=== PATIENT | male | born 1945 | race Two or more races ===

== ENCOUNTER 2024-07-09 10:54 | Inpatient (IN) | payer MEDICARE, MEDICAID, SELFPAY ==
[2024-07-09] VITALS (81 sets, daily range): BP systolic 45–152; BP diastolic 15–108; PULSE 64–98; RESP 9–29; TEMP 35.4–37.5; O2SAT 57–100; BMI 18.3
--- NOTE | 2024-07-09 11:51 | EKG_ITS ---
[facility] Test Date: 2024-07-09 Pat Name: ROM EDWARDS Department: Room: - Gender: Male Mental Health Worker: : 1945 Requested By: Anam Goode Order Number: [id number] Reading MD: Anam Goode Measurements Intervals [place] Rate: 84 P: 33 RI: 121 QRS: 29 QRSD: 107 T: 14 QT: 383 QTc: 454 Interpretive Statements SINUS RHYTHM LOW QRS VOLTAGE IN EXTREMITY LEADS [QRS DEFLECTION < 0.5 mV IN LIMB LEADS] MODERATE ST DEPRESSION [0.05+ mV ST DEPRESSION] No previous ECG available for comparison /[id number]
--- NOTE | 2024-07-09 11:51 | EDNOTE_ITS ---
ED Weakness RME/HPI General Chief complaint: Flu Like Symptoms Stated complaint: COUGHING, WEAK, NO EATING/DRINKING; CHOKE ON WATER Time Seen by Provider: 07/09/24 11:11 Source: patient and family Arrival date/time: 07/09/24 10:54 Limitations: altered mental status RME / HPI RME / HPI Narrative: DR. FRIAS MAIN ED EVALUATION: 78 y/o male with Hx of Stroke, Type II DM, and Hypertension BIB son presents to ED c/o cough, loose stool and weakness x 2 days. Patient is lethargic, unable to provide history, and son notes this started primarily with a cough that worsened after his father choked on some food. Patient has had some aspiration issues/choking issues since his CVA. Denies any fever. Patient was seen at clinic yesterday and was prescribed cough medication and antibiotics, but has not started them as since yesterday evening he is unable to get his father to take any water, medicines, or food therefore brings him to the emergency. Son reports he is usually able to have conversations with the patient, but has not been able to thoroughly communicate over the last 2 days. Related Data Home Medications ?Medication ?Instructions ?Recorded ?Confirmed acetazolamide 250 mg tablet 125 mg PO QDAY 04/26/19 Held on 07/10/24. Instructions: Doctor's Order alogliptin 6.25 mg tablet 6.25 mg PO QAM 04/26/1906/23 Held on 07/10/24. Instructions: Doctor's Order brimonidine 0.1 % eye drops 1 drp ophthalmic (eye) TID 04/26/19 07/10/24 Held on 07/10/24. Instructions: Doctor's Order losartan 50 mg tablet 50 mg PO QDAY 04/26/1907/10 Held on 07/10/24. Instructions: Doctor's Order simvastatin 10 mg tablet 10 mg PO QPM 04/26/19 Held on 07/10/24. Instructions: Doctor's Order timolol maleate 0.5 % once daily 1 drp ophthalmic (eye ) BID 04/26/19 07/10/24 eye drops Held on 07/10/24. Instructions: Doctor's Order metformin 1,000 mg tablet 1,000 mg PO QDAY 04/27/19 aspirin 81 mg tablet,delayed 81 mg PO QDAY 07/10/24 release (Adult Low Dose Aspirin) promethazine-DM 6.25 mg-15 mg/5 mL 5 ml PO Q6H PRN cou gh 07/10/24 07/10/24 oral syrup Previous Rx's ?Medication ?Instructions ?Recorded ascorbic acid (vitamin C) 250 mg 500 mg (2 x 250 mg) P O BID #10 tabs 04/29/19 tablet (Vitamin C) Held on 07/10/24. Instructions: Doctor's Order hydrocodone 10 mg-acetaminophen 1 tab PO Q6H PRN pain #20 tabs 04/29/19 325 mg tablet ([place]) Held on 07/10/24. Instructions: Doctor's Order insulin glargine 100 unit/mL (3 7 unit (0.07 mL) subcu t QDAY #15 mL 04/29/19 mL) subcutaneous pen Held on 07/10/24. Instructions: Doctor's Order zinc sulfate 50 mg zinc (220 mg) 220 mg (4.4 x 50 mg z inc (220 mg)) 04/29/19 capsule PO QDAY #10 caps Held on 07/10/24. Instructions: Doctor's Order Allergies Allergy/AdvReac Type Severity Reaction Status Date / Time No Known Allergies Allergy Verified 07/09/24 10:57 Review of Systems Review of Systems ROS Unobtainable: unobtainable due to medical condition Past Medical History Past Medical History CARDIAC: Positive Hypercholesterolemia and Hypertension ENT: Positive Glaucoma ENDOCRINE: Positive Diabetes Mellitus Type 2 ED Exam Narrative Physical exam: GENERAL APPEARANCE: AxOx4, generally well-appearing, no acute distress. Lethargic. Slow to answer questions. HEENT: NC, AT. EOMI, clear conjunctiva, oropharynx clear. Mucus membranes dry. NECK: Supple without lymphadenopathy. No stiffness or restricted ROM. HEART: Normal rate and regular rhythm, normal S1/S1, no m/r/g LUNGS: CTAB, moving air well. No crackles or wheezes are heard. Hypoxic, saturating at 87%-90% on room air. ABDOMEN: Soft, nontender, nondistended with good bowel sounds heard. BACK: No midline C/T/L spine pain or deformity, No CVAT, no obvious deformity. EXTREMITIES: Without cyanosis, clubbing or edema. MUSCULOSKELETAL: FROM of all major joints, no chest tenderness NEUROLOGICAL: Grossly nonfocal. Alert and oriented, moving all 4 extremities. CN not formally tested but appear grossly intact. Observed to ambulate with normal gait. Skin: Warm and dry without any rash. General Limitations: Present altered mental status Course Course Course Narrative: CXR is ordered for determining etiology of aspiration/cough. Quality Measures Current suspected stage: septic shock (LA >4 and/or hypotension) Sepsis reassessment completed at (date): 07/09/24 Sepsis reassessment completed at (time): 00:00 Possible source: pulmonary (Aspiration pneumonia) Blood cultures ordered: yes Antibiotic ordered: Yes Pertinent labs: 07/09/24 12:25 Lactic Acid 6.3 H* mMol/L (0.4-2.0) Procalcitonin 0.90 H ng/ml (0.0-0.49) sepsis and none Orders Category Date Time Status Visitor Services Assistant Q4H START 00 Care 07/09/24 12:23 Active EKG (ED ONLY) *Do not use* NOW Care 07/09/24 11:51 Completed Maria [Urinary Catheter] X1 Care 07/09/24 13:49 Active Maria to [place] Routine Care 07/09/24 13:43 Ordered Insert IV NOW Care 07/09/24 12:23 Active Transfuse,blood/blood products NOW Care 07/09/24 13:57 Active guaiac [Occult Blood,Stool (Nursing)] NOW Care 07/09/24 14:00 Active Consult to Cardiology Stat Cons 07/09/24 13:[address] head/brain wo con Stat Exams 07/09/24 11:51 Completed EKG (ED Only) Stat Exams 07/09/24 11:51 Draft XR chest 1V Stat Exams 07/09/24 11:51 Completed Blood Culture (Lab) Stat Lab 07/09/24 12:25 Received CBC Stat Lab 07/09/24 12:25 Completed CMP [Comprehensive Metabolic Panel] Stat Lab 07/09/24 12:25 Completed Ketone [Beta Hydroxybutyrate] Stat Lab 07/09/24 12:25 Completed Lactate (Lactic Acid) Stat Lab 07/09/24 12:25 Completed Partial Thromboplastin Time Stat Lab 07/09/24 14:03 Completed Procalcitonin Stat Lab 07/09/24 12:25 Completed Prothrombin Time with INR Stat Lab 07/09/24 14:03 Completed Troponin I Stat Lab 07/09/24 12:25 Completed Type and Screen Stat Lab 07/09/24 14:03 Results Urinalysis Stat Lab 07/09/24 14:05 Completed VBG [Venous Blood Gas] Stat Lab 07/09/24 12:25 Completed prbc [Red Blood Cells] Stat Lab 07/09/24 14:03 Results Insulin Reg 100 Units/100 ml [Myxredlin] Med 07/09/24 13:42 Discontinued 100 unit in 100 ml IV 0.1 unit/kg/hr Insulin Regular Med 07/09/24 13:44 Discontinued 8 unit IV X1 ONE MethylPREDNISolone.* [SoluMEDROL Inj] Med 07/09/24 11:49 Discontinued 125 mg IVP X1 ONE Norepinephrine/D5W 8mg/250ml [Levophed in D5W 8mg/250ml Med 07/09/24 13:43 Discontinued ] 8 mg in 250 ml IV 0.05 mcg/kg/min Piper/Tazo 3.375 gm Premix [Zosyn] Med 07/09/24 13:38 Discontinued 3.375 gm in 50 ml IV X1 Sodium Bicarb 8.4% 50ml Vial* Med 07/09/24 13:44 Discontinued 100 meq IV X1 ONE Sodium Chloride 0.9% 1000 ml [Ns] 1,000 ml Med 07/09/24 11:49 Discontinued IV 999 mls/hr Sodium Chloride 0.9% 500 ml [Ns] 500 ml Med 07/09/24 13:05 Discontinued IV 999 mls/hr Sodium Chloride 0.9% 500 ml [Ns] 500 ml Med 07/09/24 13:37 Discontinued IV 999 mls/hr Reevaluation(s) Reevaluation #1: Patient's blood sugar is good. Considered for possible admission. Pending official radiology report for CT, CXR. Time: 12:35 Reevaluation #2: After administering 1.5 L of fluids, patient is opening his eyes, appears more spry. Sepsis alert initiated. Time: 01:39 Vital Signs Vital signs: Vital Signs Temperature 98.7 F 07/09/24 11:28 Pulse Rate 72 07/09/24 11:28 Respiratory Rate 17 07/09/24 11:28 Blood Pressure 78/48 L 07/09/24 11:28 Pulse Oximetry (%) 98 07/09/24 11:28 Oxygen Delivery Method Room Air 07/09/24 11:28 Procedures -ED EKG Interpretation #1: Date of EK07/09/24 Time of EK:57 Rate: 84 Interpretation: Interpreted by me Additional EKG comment: Normal sinus rhythm, HR 84, normal axis, normal interval, no acute ST or T-wave changes, no STEMI. Weakness MDM Narrative MDM Narrative:: Mr. Edwards presents to the emergency department markedly ill, hypotensive, concerning for septic shock. Subjective history was provided primarily by the patient's son as the patient himself was lethargic. He normally can hold regular conversations although normal activity is bedbound (bilateral BKA, CVA in the past). Patient's son notes that 2 days ago he choked on his food (something he does on occasion since his CVA) and since then has had a worsening cough. Patient on arrival was hypotensive with a systolic of 70s, his brought immediately to room 4 and resuscitated. Reassessment after 20 cc/kg fluid resuscitation she was much more alert patient, he states he feels well without any significant pain. He denies abdominal pain. However he does not acknowledge having a cough. Laboratory testing was grossly abnormal and critical. There was significant for normal white blood cell count of 9000, however a marked anemia with a hemoglobin of 7.2, acute kidney injury with a creatinine of 2.4, marked metabolic acidosis without anion gap, and signs of shock liver with AST and ALT in the thousands. Due to the concerns for aspiration of GI contents, patient was started initially on IV steroids. Although white blood cell count was normal, chest x-ray shows early infiltrates and lactic acid returned a markedly high (in the setting of acute kidney injury) patient had blood cultures drawn and was started on broad-spectrum antibiotics. Despite aggressive fluid resuscitation he would hold a stable blood pressure of systolics in the 100 for no more than 30 to 40 minutes and then would return to a hypotensive state. Patient was started on pressors. I contacted the ICU team for admission. The send and returned by the time the ICU team was here they had discussed end of care goals with him. Patient send was advised he is very ill, guarded condition. Patient is DNR/DNI. Scribe Attestation: I, Beverly Kevin, am scribing for and in the presence of Dr. Frias. Provider Notation: Although this document has been carefully reviewed, there may still be some phonetic and other typographical errors.? These errors are purely grammatical due to imperfections in the software program and should not be construed in any way to? compromise the substance of the patient's medical care during this visit. Patient data External records reviewed:: [facility] previous records (No recent ED records available for review.) Clinical information provided by:: family (Son) Social determinants that could affect healthcare access:: none Patient has the following chronic illnesses:: Hypercholesterolemia, Hypertension, Glaucoma, Diabetes Mellitus Type 2, Stroke How is presenting disease/condition affected by chronic disease/condition?: exacerbated by Evaluation data The following diagnostics were reviewed and interpreted by me:: lab results, radiology exam(s) and EKG tracing(s) (see interpretation under the procedures tab) Lab and/or radiology exams considered but not ordered:: None Interpretation Summary: RADIOLOGY Chest X-Ray I personally reviewed and interpreted a chest xray on this patient that was ordered for determining etiology of aspiration/cough. Films were reviewed. I agree with the radiologist's interpretation. Patient: ROM EDWARDS Record#: [id number] Birthdate: 1945 Age/Sex: 78 / M Location: [address]: Braeden Vigil MD Ordering Physician: Anam Frias MD Date of Service: 07/09/24 Procedure(s): XR chest 1V Accession Number(s): [id number] cc: Nathan Joe MD; Anam Frias MD; Krunal Gaming MD~ Examination: AP chest single view Technique one AP portable semiupright chest single view Date and time: July 09, 2024 1211 hrs. Indications: Coughing shortness of breath beginning 3 days ago. Findings: Bilateral perihilar bibasilar pneumonia. Normal heart size Prominent osteopenia Impression: Significant bilateral pneumonia Dictated By: Krunal Gaming MD Signed By: <Electronically signed by Krunal Gaming MD in OV> 07/09/24 1441 Head/Brain CT Patient: ROM EDWARDS. Record#: [id number] Birthdate: 1945 Age/Sex: 78 / M Location: [facility] Attending Dr: Ordering Physician: Anam Frias MD Date of Service: 07/09/24 Procedure(s): CT head/brain wo [facility] Accession Number(s): [id number] cc: Nathan Joe MD; Anam Frias MD; Krunal Gaming MD~ Examination: CT brain head without contrast. 2-D sagittal coronal reconstructions Date and time of exam:July 09, 2024 1258 hrs. Indications: Altered mental status today CTDI: vol (mGy):48 DLP: (mGycm):884 Technique: Multiple CT axial sections of the brain have been obtained, 5 mm slice thickness. Contrast has not been administered. 2-D sagittal, coronal reconstructions have been obtained Low dose protocols were performed. One or more of the following dose reduction techniques were used; automated exposure control, adjustment of the mA and/or KV according to patient size, use of iterative reconstruction technique. Findings: No significant ventricular enlargement. Encephalomalacia and left middle cerebral artery distribution with ipsilateral ventricular dilatation Intra-axial or extra-axial hemorrhage density is not seen. No mass effect or midline shift Basal cisterns are not remarkable. Fourth ventricle is midline. Cranial vault intact. Impression: Negative for acute hemorrhage, mass effect or midline shift Advise clinical correlation and follow-up accordingly Dictated By: Krunal Gaming MD Signed By: <Electronically signed by Krunal Gaming MD in OV> 07/09/24 1438 Medications / Prescriptions Medications or Prescriptions considered but not ordered:: None Medication administrations:: Medication Administration History Acetaminophen (Acetaminophen 325 Mg Tablet) 650 mg PO Q6H PRN PRN Reason: Fever >101.5 Stop: 08/08/24 14:19 Acetaminophen (Acetaminophen 325 Mg Tablet) 650 mg PO Q6H PRN PRN Reason: PAIN SCALE 1-3 (mild Stop: 08/08/24 14:19 Dextrose (Dextrose 50%-Water Inj 50 Ml Syringe) 25 ml IV Q15MIN PRN PRN Reason: BG 50-70 responsive npo pt Stop: 08/08/24 16:23 Dextrose (Dextrose 50%-Water Inj 50 Ml Syringe) 50 ml IV Q15MIN PRN PRN Reason: BG <50 OR BG <70 & pt unresponsive Stop: 08/08/24 16:23 Glucagon (Glucagon Inj 1 Mg Vial) 1 mg IM Q15MIN PRN PRN Reason: BG <70, and no IV access Ceftriaxone Sodium/Dextrose (Rocephin/D5w 1gm Iv Premix) 1 gm in 50 mls @ 100 mls/hr IV QDAY PAUL Stop: 07/17/24 08:59 Vasopressin/Sodium Chloride (Vasostrict/Ns Ivpb) 20 unit in 100 mls @ 9 mls/hr IV .Q11H7M PRN; Protocol PRN Reason: PER PROTOCOL Stop: 08/08/24 14:57 Last Titration: 07/10/24 06:00 Dose: 0.03 unit/min, 9 mls/hr Documented By: Titration: 07/10/24 05:00 Dose: 0.03 unit/min, 9 mls/hr Documented By: Titration: 07/10/24 04:00 Dose: 0.03 unit/min, 9 mls/hr Documented By: Admin: 07/10/24 03:26 Dose: 0.03 unit/min, 9 mls/hr Documented By: Titration: 07/10/24 03:26 Dose: Infused Documented By: Titration: 07/10/24 03:00 Dose: 0.03 unit/min, 9 mls/hr Documented By: Titration: 07/10/24 02:00 Dose: 0.03 unit/min, 9 mls/hr Documented By: Titration: 07/10/24 01:00 Dose: 0.03 unit/min, 9 mls/hr Documented By: Titration: 07/10/24 00:00 Dose: 0.03 unit/min, 9 mls/hr Documented By: Titration: 07/09/24 23:00 Dose: 0.03 unit/min, 9 mls/hr Documented By: Titration: 07/09/24 22:00 Dose: 0.03 unit/min, 9 mls/hr Documented By: Titration: 07/09/24 21:00 Dose: 0.03 unit/min, 9 mls/hr Documented By: Titration: 07/09/24 20:30 Dose: 0.03 unit/min, 9 mls/hr Documented By: Titration: 07/09/24 20:00 Dose: 0.03 unit/min, 9 mls/hr Documented By: Admin: 07/09/24 18:04 Dose: 0.03 unit/min, 9 mls/hr Documented By: ZP Norepinephrine Bitartrate (Levophed In Ns 16mg/250ml) 16 mg in 250 mls @ 2.147 mls/hr IV .Q24H PRN; Protocol PRN Reason: PER PROTOCOL Stop: 08/08/24 19:49 Last Titration: 07/10/24 06:00 Dose: 0.19 mcg/kg/min, 8.16 mls/hr Documented By: Titration: 07/10/24 05:00 Dose: 0.19 mcg/kg/min, 8.16 mls/hr Documented By: Titration: 07/10/24 04:20 Dose: 0.19 mcg/kg/min, 8.16 mls/hr Documented By: Titration: 07/10/24 04:00 Dose: 0.21 mcg/kg/min, 9.019 mls/hr Documented By: Titration: 07/10/24 03:00 Dose: 0.21 mcg/kg/min, 9.019 mls/hr Documented By: Titration: 07/10/24 02:00 Dose: 0.21 mcg/kg/min, 9.019 mls/hr Documented By: Titration: 07/10/24 01:16 Dose: 0.23 mcg/kg/min, 9.878 mls/hr Documented By: Titration: 07/10/24 01:11 Dose: 0.21 mcg/kg/min, 9.019 mls/hr Documented By: Titration: 07/10/24 01:00 Dose: 0.19 mcg/kg/min, 8.16 mls/hr Documented By: Titration: 07/10/24 00:31 Dose: 0.19 mcg/kg/min, 8.16 mls/hr Documented By: Titration: 07/10/24 00:00 Dose: 0.21 mcg/kg/min, 9.019 mls/hr Documented By: Titration: 07/09/24 23:46 Dose: 0.23 mcg/kg/min, 9.878 mls/hr Documented By: Titration: 07/09/24 23:37 Dose: 0.25 mcg/kg/min, 10.737 mls/hr Documented By: Titration: 07/09/24 23:30 Dose: 0.25 mcg/kg/min, 10.737 mls/hr Documented By: Titration: 07/09/24 23:01 Dose: 0.27 mcg/kg/min, 11.596 mls/hr Documented By: Titration: 07/09/24 23:00 Dose: 0.29 mcg/kg/min, 12.455 mls/hr Documented By: Titration: 07/09/24 22:35 Dose: 0.29 mcg/kg/min, 12.455 mls/hr Documented By: Titration: 07/09/24 22:00 Dose: 0.31 mcg/kg/min, 13.314 mls/hr Documented By: Titration: 07/09/24 21:45 Dose: 0.31 mcg/kg/min, 13.314 mls/hr Documented By: Titration: 07/09/24 21:30 Dose: 0.33 mcg/kg/min, 14.173 mls/hr Documented By: Titration: 07/09/24 21:00 Dose: 0.35 mcg/kg/min, 15.032 mls/hr Documented By: Titration: 07/09/24 20:30 Dose: 0.35 mcg/kg/min, 15.032 mls/hr Documented By: Admin: 07/09/24 20:00 Dose: 0.37 mcg/kg/min, 15.891 mls/hr Documented By: Insulin Human Lispro (Insulin Lispro (Admelog) 1 Unit/0.01 Ml Unit) 0 unit SC Q6HR PAUL; Protocol Stop: 08/08/24 17:59 Last Admin: 07/10/24 06:30 Dose: 1 unit Documented By: Co-signed By: SHANELLE Admin: 07/10/24 00:27 Dose: 4 unit Documented By: Co-signed By: MILTON Admin: 07/09/24 18:00 Dose: 4 unit Documented By: SANDRINE Co-signed By: MR Ondansetron HCl (Ondansetron Inj 2 Mg/Ml Inj 2 Ml) 4 mg IV Q6H PRN; Protocol PRN Reason: NAUSEA OR VOMITING Stop: 08/08/24 14:19 Pantoprazole Sodium (Pantoprazole Inj 40 Mg Vial) 40 mg IVP BID PAUL Stop: 08/08/24 17:04 Last Admin: 07/10/24 07:02 Dose: 40 mg Documented By: Admin: 07/09/24 20:06 Dose: 40 mg Documented By: Admin: 07/09/24 18:00 Dose: 40 mg Documented By: SANDRINE Discontinued Medications Albuterol (Albuterol Rt 2.5 Mg/0.5 Ml Nebu) 10 mg INH X1 ONE Stop: 07/09/24 22:01 Last Admin: 07/09/24 22:35 Dose: 10 mg Documented By: TERESA Dextrose (Dextrose 50%-Water Inj 50 Ml Syringe) 50 ml IV X1 ONE Stop: 07/09/24 14:35 Last Admin: 07/09/24 16:17 Dose: Not Given Documented By: SURESH Non-Admin Reason: Cancelled by Provider Dextrose (Dextrose 50%-Water Inj 50 Ml Syringe) 50 ml IV X1 ONE Stop: 07/09/24 21:53 Last Admin: 07/09/24 22:07 Dose: 50 ml Documented By: Furosemide (Furosemide Inj 10 Mg/Ml 4ml Vial) 40 mg IVP X1 ONE Stop: 07/10/24 01:41 Last Admin: 07/10/24 01:50 Dose: 40 mg Documented By: Heparin Sodium (Porcine) (Heparin Sod Inj 5000 Unit/Ml Vial) 5,000 unit SC Q8HR PAUL Stop: 07/23/24 21:59 Sodium Chloride (Ns) 1,000 mls @ 999 mls/hr IV .Q1H1M ONE Stop: 07/09/24 12:49 Last Infusion: 07/09/24 13:11 Dose: Infused Documented By: Admin: 07/09/24 12:24 Dose: 999 mls/hr Documented By: SURESH Sodium Chloride (Ns) 500 mls @ 999 mls/hr IV .Q31M ONE Stop: 07/09/24 13:35 Last Infusion: 07/09/24 14:04 Dose: Infused Documented By: Admin: 07/09/24 13:11 Dose: 999 mls/hr Documented By: SURESH Sodium Chloride (Ns) 500 mls @ 999 mls/hr IV .Q31M ONE Stop: 07/09/24 14:07 Last Infusion: 07/09/24 14:06 Dose: Infused Documented By: Admin: 07/09/24 13:38 Dose: 999 mls/hr Documented By: SURESH Piperacillin/Tazobactam/Dextrose (Zosyn) 3.375 gm in 50 mls @ 100 mls/hr IV X1 ONE Stop: 07/09/24 14:07 Last Infusion: 07/09/24 14:38 Dose: Infused Documented By: Admin: 07/09/24 14:11 Dose: 100 mls/hr Documented By: SURESH Insulin Human Regular (Myxredlin) 100 unit in 100 mls @ 4.581 mls/hr IV .[id number] PRN; Protocol PRN Reason: PER PROTOCOL Stop: 08/08/24 13:41 Norepinephrine/Dextrose (Levophed In D5w 8mg/250ml) 8 mg in 250 mls @ 4.295 mls/hr IV .Q24H PRN; Protocol PRN Reason: PER PROTOCOL Stop: 08/08/24 13:42 Last Titration: 07/09/24 20:00 Dose: 0 mcg/kg/min, 0 mls/hr Documented By: Titration: 07/09/24 19:45 Dose: 0.39 mcg/kg/min, 33.501 mls/hr Documented By: Titration: 07/09/24 19:31 Dose: 0.37 mcg/kg/min, 31.783 mls/hr Documented By: Titration: 07/09/24 19:01 Dose: 0.35 mcg/kg/min, 30.065 mls/hr Documented By: Titration: 07/09/24 19:00 Dose: 0.33 mcg/kg/min, 28.347 mls/hr Documented By: Titration: 07/09/24 18:21 Dose: 0.33 mcg/kg/min, 28.347 mls/hr Documented By: Titration: 07/09/24 18:00 Dose: 0.31 mcg/kg/min, 26.629 mls/hr Documented By: Titration: 07/09/24 17:00 Dose: 0.31 mcg/kg/min, 26.629 mls/hr Documented By: Titration: 07/09/24 16:35 Dose: 0.31 mcg/kg/min, 26.629 mls/hr Documented By: Titration: 07/09/24 16:31 Dose: 0.29 mcg/kg/min, 24.911 mls/hr Documented By: Titration: 07/09/24 16:15 Dose: 0.29 mcg/kg/min, 24.911 mls/hr Documented By: Titration: 07/09/24 16:10 Dose: 0.29 mcg/kg/min, 24.911 mls/hr Documented By: Titration: 07/09/24 16:05 Dose: 0.29 mcg/kg/min, 24.911 mls/hr Documented By: Titration: 07/09/24 16:00 Dose: 0.29 mcg/kg/min, 24.911 mls/hr Documented By: Titration: 07/09/24 15:55 Dose: 0.29 mcg/kg/min, 24.911 mls/hr Documented By: Titration: 07/09/24 15:50 Dose: 0.29 mcg/kg/min, 24.911 mls/hr Documented By: Titration: 07/09/24 15:45 Dose: 0.29 mcg/kg/min, 24.911 mls/hr Documented By: Titration: 07/09/24 15:35 Dose: 0.27 mcg/kg/min, 23.193 mls/hr Documented By: Titration: 07/09/24 15:30 Dose: 0.27 mcg/kg/min, 23.193 mls/hr Documented By: Titration: 07/09/24 15:25 Dose: 0.27 mcg/kg/min, 23.193 mls/hr Documented By: Titration: 07/09/24 15:20 Dose: 0.27 mcg/kg/min, 23.193 mls/hr Documented By: Titration: 07/09/24 15:10 Dose: 0.27 mcg/kg/min, 23.193 mls/hr Documented By: Titration: 07/09/24 15:00 Dose: 0.25 mcg/kg/min, 21.475 mls/hr Documented By: Titration: 07/09/24 14:55 Dose: 0.25 mcg/kg/min, 21.475 mls/hr Documented By: Titration: 07/09/24 14:50 Dose: 0.23 mcg/kg/min, 19.757 mls/hr Documented By: Titration: 07/09/24 14:45 Dose: 0.21 mcg/kg/min, 18.039 mls/hr Documented By: Titration: 07/09/24 14:40 Dose: 0.19 mcg/kg/min, 16.321 mls/hr Documented By: Titration: 07/09/24 14:35 Dose: 0.17 mcg/kg/min, 14.603 mls/hr Documented By: Titration: 07/09/24 14:30 Dose: 0.17 mcg/kg/min, 14.603 mls/hr Documented By: Titration: 07/09/24 14:25 Dose: 0.15 mcg/kg/min, 12.885 mls/hr Documented By: Titration: 07/09/24 14:20 Dose: 0.13 mcg/kg/min, 11.167 mls/hr Documented By: Titration: 07/09/24 14:15 Dose: 0.11 mcg/kg/min, 9.449 mls/hr Documented By: Titration: 07/09/24 14:11 Dose: 0.09 mcg/kg/min, 7.731 mls/hr Documented By: Titration: 07/09/24 14:05 Dose: 0.07 mcg/kg/min, 6.013 mls/hr Documented By: Admin: 07/09/24 14:00 Dose: 0.05 mcg/kg/min, 4.295 mls/hr Documented By: SURESH Calcium Gluconate/Sodium Chloride (Calcium Gluc/Ns 1000mg Ivpb) 1,000 mg in 50 mls @ 50 mls/hr IV X1 ONE Stop: 07/09/24 15:34 Last Admin: 07/09/24 16:15 Dose: 50 mls/hr Documented By: SURESH Ceftriaxone Sodium/Dextrose (Rocephin/D5w 1gm Iv Premix) 1 gm in 50 mls @ 100 mls/hr IV QDAY PAUL Stop: 07/16/24 14:35 Last Admin: 07/09/24 14:52 Dose: Not Given Documented By: SURESH Non-Admin Reason: Cancelled by Provider Insulin Human Regular (Insulin Hum Regular 1 Unit/0.01 Ml (Per Unit)) 8 unit IV X1 ONE Stop: 07/09/24 13:45 Last Admin: 07/09/24 14:05 Dose: Not Given Documented By: SURESH Non-Admin Reason: Cancelled by Provider Insulin Human Regular (Insulin Hum Regular 1 Unit/0.01 Ml (Per Unit)) 10 unit IV X1 ONE Stop: 07/09/24 14:35 Last Admin: 07/09/24 14:49 Dose: 10 unit Documented By: SURESH Co-signed By: Bg Insulin Human Regular (Insulin Hum Regular 1 Unit/0.01 Ml (Per Unit)) 10 unit IV X1 ONE Stop: 07/09/24 17:41 Last Admin: 07/09/24 18:01 Dose: 10 unit Documented By: SANDRINE Co-signed By: Insulin Human Regular (Insulin Hum Regular 1 Unit/0.01 Ml (Per Unit)) 10 unit IV X1 ONE Stop: 07/09/24 21:53 Last Admin: 07/09/24 22:06 Dose: 10 unit Documented By: Co-signed By: AD Methylprednisolone Sodium Succinate (Methylprednisolone Sod Succ 62.5 Mg/Ml 2ml Vial) 125 mg IVP X1 ONE Stop: 07/09/24 11:50 Last Admin: 07/09/24 12:25 Dose: 125 mg Documented By: SURESH Sodium Bicarbonate (Sodium Bicarb Inj 8.4% 1 Meq/Ml 50 Ml Vial) 100 meq IV X1 ONE Stop: 07/09/24 13:45 Last Admin: 07/09/24 14:05 Dose: Not Given Documented By: SURESH Non-Admin Reason: Cancelled by Provider Sodium Bicarbonate (Sodium Bicarb Inj 8.4% Syr 50 Ml Syringe) 50 ml IV X1 ONE Stop: 07/10/24 00:08 Last Admin: 07/10/24 00:11 Dose: 50 ml Documented By: Sodium Bicarbonate (Sodium Bicarb Inj 8.4% Syr 50 Ml Syringe) 50 ml IV X1 ONE Stop: 07/10/24 00:08 Last Admin: 07/10/24 00:12 Dose: 50 ml Documented By: Sodium Polystyrene Sulfonate (Sod Polystyrene Sulfon Susp 15 Gm/60 Ml Btl) 30 gm PO X1 ONE Stop: 07/10/24 01:41 Last Admin: 07/10/24 02:04 Dose: 30 gm Documented By: See above if any Consultations Consultation(s) initiated? (list below): Yes Consultation #1 (Physician, Specialty, Details): Dr. Gerson Kevin, ICU resident, made aware of the patient?s HPI, PMHx, lab and/or radiology results. Discussed treatment plan. Will consult an ICU admission to the hospitalist. Time: 13:45 Consultation #2 (Physician, Specialty, Details): Dr. Sweet, our recovery room nurse, made aware of the patient?s HPI, PMHx, lab and/or radiology results. Discussed patient's elevated Troponin, N-STEMI, and potential drop in blood pressure. Discussed treatment plan. Time: 13:53 Diagnosis Weakness Differential Diagnosis: acute myocardial infarction, hypoglycemia, hypothyroidism, rhabdomyolysis, sepsis, dehydration and other (URI, Viral Illness, PNA, Bronchiolitis, Bronchitis) Most likely diagnosis given after review of the tests above:: Aspiration pneumonia, Acute Kidney Injury, Septic Shock Admission Indicated Admission indicated?: indicated Explain why admission is indicated or not indicated:: Patient has abnormalities in their studies and needs admission, see above. Admission Request Was there a request for admission?: Yes Admission Attestation Admission request attestation: Discussed case with [] from Hospitalist service regarding admission. Discussed patients ED course, exam findings, labs, and radiology results. The Hospitalist [agrees,declines] to accept the patient for admission. Disposition Plan Disposition Plan: Admit Critical Care Time Critical Care Time Critical Care Time: Yes Total Critical Care Time (min.): 35 Attestation: The high probability of sudden, clinically significant deterioration in the patient?s condition required the highest level of my preparedness to intervene urgently. The services I provided to this patient were to treat and/or prevent clinically significant deterioration. Services included the following: chart data review, reviewing nursing notes and/or old charts, documentation time, senior application security consultant collaboration regarding findings and treatment options, medication orders and management, direct patient care, vital sign assessments and ordering, interpreting and reviewing diagnostic studies and lab tests. Aggregate critical care time includes only time during which I was engaged in work directly related to the patient?s care, as described above, whether at bedside or elsewhere in the Emergency Department. It did not include time spent performing other reported procedures or the services of residents, students, nurses or physician assistants. Discharge Plan Plan Patient Disposition: Admit Acute Care w/in Hospital Problem List Clinical Impression: Aspiration pneumonia, Septic shock, Acute kidney injury
[2024-07-09] MEDS: SODIUM CHLORIDE 0.9% 1000 ML 1,000 ML 999 ML IV (12:24)
[2024-07-09] MEDS: MethylPREDNISolone SOD SUCC 62.5 MG/ML 2ML VIAL 125 MG IVP (12:25)
[2024-07-09 12:48] LABS: Base Excess, Venous -7 (-3-3); O2 Saturation, Venous 56 % (96-97); PCO2, Venous 38 mmHg (36-56); PO2, Venous 37 mmHg (15-58); pH, Venous 7.31 (7.33-7.66)
[2024-07-09 12:51] LABS: Basophils % (Auto) 0 % (0-2.5); Eosinophils % (Auto) 0 % (0-10); Hematocrit 22.8 % (41.0-53.0); Immature Granulocytes % (Auto) 1 % (0-0); Immature Granulocytes Auto 0.08 Thou/mm3 (0.00-0.00); Lymphocytes # (Auto) 0.5 Thou/mm3 (1.0-4.8); Lymphocytes % (Auto) 5 % (10-50); Mean Corpuscular HGB Conc 31.6 g/dl (31.0-37.0); Mean Corpuscular Hemoglobin 28.2 pg (25.0-35.0); Mean Corpuscular Volume 89 fL (80-100); Monocytes # (Auto) 0.4 Thou/mm3 (0.0-0.8); Monocytes % (Auto) 4 % (0-12); Neutrophils # (Auto) 8.4 Thou/mm3 (1.8-7.7); Neutrophils % (Auto) 89 % (37-80); Nucleated Red Blood Cell # 0.02 Thou/mm3 (0.00-0.00); Nucleated Red Blood Cell % 0 /100 WBC (0); Platelet Count 313 Thou/mm3 (140-440); RDW Standard Deviation 51.3 fL (35.1-43.9); Red Blood Count 2.55 Miln/mm3 (4.50-5.90); White Blood Count 9.4 Thou/mm3 (3.8-10.6)
[2024-07-09 12:55] LABS: Hemoglobin 7.2 g/dL (13.5-16.0)
[2024-07-09 13:00] LABS: Beta Hydroxybutyrate 1.4 mmol/L (<0.6)
[2024-07-09] MEDS: SODIUM CHLORIDE 0.9% 500 ML 500 ML 999 ML IV ×2 (13:11→13:38)
[2024-07-09 13:29] LABS: Alanine Aminotransferase 947 U/L (10-49); Albumin, Serum 2.8 gm/dL (3.4-4.8); Albumin/Globulin Ratio 1.1 (1.2-2.2); Alkaline Phosphatase 1207 U/L (46-116); Anion Gap 15 (7-16); Aspartate Amino Transferase 1933 U/L (0-34); BUN/Creatinine Ratio 26 Ratio (12-20); Bilirubin,Total 0.4 mg/dL (0.3-1.2); Blood Urea Nitrogen 71 mg/dL (9-23); Calcium 6.9 mg/dL (8.3-10.6); Calcium (Corrected) 7.9 mg/dL (8.5-10.1); Carbon Dioxide 18.7 mMol/L (20.0-31.0); Chloride 105 mMol/L (98-107); Creatinine (Component) 2.7 mg/dL (0.6-1.3); Globulin 2.5 gm/dL (2.3-3.5); Osmolality,Calculated 321 (275-295); Sodium 139 mMol/L (136-145); Total Protein 5.3 gm/dL (5.7-8.2); eGFR 23 See Note
[2024-07-09 13:33] LABS: Potassium 6.5 mMol/L (3.4-5.1)
[2024-07-09 13:34] LABS: Troponin I 8.889 ng/mL (0.0-0.045)
[2024-07-09 13:35] LABS: Glucose 515 mg/dL (74-106)
[2024-07-09 13:36] LABS: Lactate (Lactic Acid) 6.3 mMol/L (0.4-2.0)
[2024-07-09] MEDS: Norepinephrine/D5W 8mg/250ml 8 MG/250 ML BAG 4.295 MG IV (14:00)
[2024-07-09] MEDS: PIPER/TAZO 3.375 GM PREMIX 3.375 GM/50 ML BAG IV (14:11)
[2024-07-09 14:17] LABS: Collection Type, Urine Clean Catch; Squamous Epithelial Cell,Urine 0 /hpf (0-5)
[2024-07-09 14:27] LABS: Amorphous Crystals,Urine Present (Absent); Bilirubin,Urine Negative (Negative); Blood,Urine 1+ (Negative); Color,Urine Yellow (Lt Yel-Yel); Glucose, Urine 2+ (Negative); Ketones,Urine Negative (Negative); Leukocyte Esterase,Urine Negative (Negative); Nitrite,Urine Negative (Negative); Protein,Urine 3+ (Neg - Trace); RBC,Urine 9 /hpf (0-3); Specific Gravity,Urine 1.023 (1.001-1.035); Urobilinogen,Urine Negative mg/dL (0.0-1.0); WBC,Urine 3 /hpf (0-5)
[2024-07-09 14:28] LABS: Clarity,Urine Hazy (Clear/Hazy)
[2024-07-09 14:37] LABS: INR 1.6 (0.9-1.3); Partial Thromboplastin Time 25.2 Seconds (22.0-36.0); Prothrombin Time 16.5 Seconds (9.0-12.2)
--- NOTE | 2024-07-09 14:39 | ESHP_ITS ---
<Statement entered by Braeden Vigil MD - 07/10/24 08:38> Patient has acute non st elevation NH with low EF, GI bleed, Cardiogenic shock, Acute renal failure, possible metformin toxicity with lactic acidosis, metabolic encephalopathy. Grave prognosis. Family reluctant on dialysis. will need additional family meetings. 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 Son states that at baseline patient is usually ambulatory with prosthetics however since his stroke about 5 years ago his quality of life has progressively declined. They have not noticed anything in particular as when you asked the patient if there is anything wrong he does not have any complaints however the son noticed that he is not his usual self and he seems confused from his baseline. In the ED patient came in with a blood pressure was 78/48, pulse 72, respiratory rate 17, temperature 98.7, O2 sat 98 on 3 L nasal cannula CBC showed a hemoglobin of 7.2 CMP showed a sodium of 139, potassium 6.5, BUN of 71 and creatinine of 2.7 unsure about his new baseline as his last labs were in 2019. Glucose was 515 with a lactic acid of 6.3 calcium 7.9 AST was 1933, ALT 947 and troponins were elevated 8.889. Beta hydroxybutyrate was 1.4 and a procal was 0.90. UA showed dark yellow urine with 3+ protein 2+ urine, negative for ketones, and amorphous crystals. CT of the head was negative for acute hemorrhage mass effect or midline shift and there is encephalomalacia in the left middle cerebral artery distribution with ipsilateral ventricular dilatation from previous stroke EKG did not show any obvious ST segment elevations there is some nonspecific depressions in lead III and V4. Patient received 2 L boluses of NS in the ER without improvement to his MAP as as it actually dropped to the 50s over 30s. Due to the very critical state of the patient discussions about goals of care will help with the son who is the decision-maker and he wanted to try medical management at this time without CPR or intubation. 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 ENMT: Dry mucous Membranes, No trauma or injury. Neck: Supple to palpation, No JVD CVS: RRR, S1 and S2 present, no murmurs, rubs or gallops . RESP: CTAB, no SOB, no rales, rhonchi or wheezing. No respiratory Distress GI: Normal BS, Nontender/Nondistended. MSK: Full range of motion, No trauma or deformities or masses. Bilateral lower BKA's with 3+ pitting edema on the right. There is several digits amputated on the upper left extremity that happened many years ago Skin: Warm to touch, Dry. No rashes or lesions. No hematomas Neuro: Alert and oriented x 1. Patient is able to answer to his name however he mumbles mostly but he is able to answer yes and no to simple questions Results: Labs 07/09/24 15:45 07/09/24 12:25 Labs: Short CBC 07/09/24 Range/Units 12:25 WBC 9.4 (3.8-10.6) Thou/mm3 Hgb 7.2 L (13.5-16.0) g/dL Hct 22.8 L (41.0-53.0) % Plt Count 313 (140-440) Thou/mm3 BMP 07/09/24 12:25 Sodium 139 Potassium 6.5 H* Chloride 105 Carbon Dioxide 18.7 L BUN 71 H Creatinine 2.7 H Glucose 515 H* Calcium 6.9 L Cardiac Enzymes 07/09/24 Range/Units 12:25 Troponin I 8.889 H* (0.0-0.045) ng/mL Liver Function 07/09/24 Range/Units 12:25 Total Bilirubin 0.4 (0.3-1.2) mg/dL AST 1933 H* (0-34) U/L ALT 947 H* (10-49) U/L Alkaline Phosphatase 1207 H (46-116) U/L Albumin 2.8 L (3.4-4.8) gm/dL Urine 07/09/24 Range/Units 14:05 Urine Color Yellow (Lt Yel-Yel) Urine Clarity Hazy (Clear/Hazy) Urine pH 6.0 (5.0-7.0) Ur Specific Stuart 1.023 (1.001-1.035) Urine Protein 3+ A (Neg - Trace) Urine Glucose (UA) 2+ A (Negative) ABG Interpretation ABG results: 07/09/24 12:25 VBG pH 7.31 L VBG pCO2 38 VBG pO2 37 VBG Base Excess -7 L Quality Measures Quality Measures sepsis Current suspected stage: sepsis Possible source: pulmonary (Aspiration pneumonia) Blood cultures ordered: yes Antibiotic ordered: Yes and none Advance care planning discussed with:: child Medications Home Medications and Allergies Home Medications ?Medication ?Instructions ?Recorded ?Confirmed ?Type acetazolamide 250 mg tablet 125 mg PO QDAY 04/26/19 History alogliptin 6.25 mg tablet 6.25 mg PO QAM 04/26/19 03/ 4/20 History brimonidine 0.1 % eye drops 1 drp ophthalmic (eye) TID 04/26/19 04/27/19 History losartan 50 mg tablet 50 mg PO QDAY 04/26/1904/26 History simvastatin 10 mg tablet 10 mg PO QPM 04/26/19 History timolol maleate 0.5 % once daily 1 drp ophthalmic (eye ) BID 04/26/19 04/27/19 History eye drops metformin 1,000 mg tablet 1,000 mg PO QDAY 04/27/19 History Allergies Allergy/AdvReac Type Severity Reaction Status Date / Time No Known Allergies Allergy Verified 07/09/24 10:57 Visit Medications Acetaminophen (Acetaminophen 325 Mg Tablet) 650 mg PO Q6H PRN PRN Reason: Fever >101.5 Stop: 08/08/24 14:19 Acetaminophen (Acetaminophen 325 Mg Tablet) 650 mg PO Q6H PRN PRN Reason: PAIN SCALE 1-3 (mild Stop: 08/08/24 14:19 Heparin Sodium (Porcine) (Heparin Sod Inj 5000 Unit/Ml Vial) 5,000 unit SC Q8HR PAUL Stop: 07/23/24 21:59 Norepinephrine/Dextrose (Levophed In D5w 8mg/250ml) 8 mg in 250 mls @ 4.295 mls/hr IV .Q24H PRN; Protocol PRN Reason: PER PROTOCOL Stop: 08/08/24 13:42 Last Titration: 07/09/24 14:35 Dose: 0.17 mcg/kg/min, 14.603 mls/hr Calcium Gluconate/Sodium Chloride (Calcium Gluc/Ns 1000mg Ivpb) 1,000 mg in 50 mls @ 50 mls/hr IV X1 ONE Stop: 07/09/24 15:34 Ceftriaxone Sodium/Dextrose (Rocephin/D5w 1gm Iv Premix) 1 gm in 50 mls @ 100 mls/hr IV QDAY PAUL Stop: 07/16/24 14:35 Ondansetron HCl (Ondansetron Inj 2 Mg/Ml Inj 2 Ml) 4 mg IV Q6H PRN; Protocol PRN Reason: NAUSEA OR VOMITING Stop: 08/08/24 14:19 Discontinued Medications Dextrose (Dextrose 50%-Water Inj 50 Ml Syringe) 50 ml IV X1 ONE Stop: 07/09/24 14:35 Sodium Chloride (Ns) 1,000 mls @ 999 mls/hr IV .Q1H1M ONE Stop: 07/09/24 12:49 Last Infusion: 07/09/24 13:11 Dose: Infused Sodium Chloride (Ns) 500 mls @ 999 mls/hr IV .Q31M ONE Stop: 07/09/24 13:35 Last Infusion: 07/09/24 14:04 Dose: Infused Sodium Chloride (Ns) 500 mls @ 999 mls/hr IV .Q31M ONE Stop: 07/09/24 14:07 Last Infusion: 07/09/24 14:06 Dose: Infused Piperacillin/Tazobactam/Dextrose (Zosyn) 3.375 gm in 50 mls @ 100 mls/hr IV X1 ONE Stop: 07/09/24 14:07 Last Infusion: 07/09/24 14:38 Dose: Infused Insulin Human Regular (Myxredlin) 100 unit in 100 mls @ 4.581 mls/hr IV .[id number] PRN; Protocol PRN Reason: PER PROTOCOL Stop: 08/08/24 13:41 Insulin Human Regular (Insulin Hum Regular 1 Unit/0.01 Ml (Per Unit)) 8 unit IV X1 ONE Stop: 07/09/24 13:45 Last Admin: 07/09/24 14:05 Dose: Not Given Insulin Human Regular (Insulin Hum Regular 1 Unit/0.01 Ml (Per Unit)) 10 unit IV X1 ONE Stop: 07/09/24 14:35 Methylprednisolone Sodium Succinate (Methylprednisolone Sod Succ 62.5 Mg/Ml 2ml Vial) 125 mg IVP X1 ONE Stop: 07/09/24 11:50 Last Admin: 07/09/24 12:25 Dose: 125 mg Sodium Bicarbonate (Sodium Bicarb Inj 8.4% 1 Meq/Ml 50 Ml Vial) 100 meq IV X1 ONE Stop: 07/09/24 13:45 Last Admin: 07/09/24 14:05 Dose: Not Given Assessment & Plan Plan 78-year-old male with past medical history of hypertension, diabetes status post bilateral lower extremities BKA's, carotid endarterectomy, prostate cancer admitted to the ICU for further management of his shock Neuro Acute encephalopathy Likely secondary to shock versus metabolic versus infectious Patient's mentation is baseline is poor however he is more confused according to son who was at bedside Will treat underlying conditions and assess patient's mentation daily CVS Shock DDx: Hypovolemic versus distributive from septic versus cardiogenic Dx: Patient presented with a MAP in the 40s that did not improve despite adequate fluid resuscitation. According to son patient has not been eating and drinking well in the last several days. He has TANNER, troponins were elevated 8.889 and liver enzymes were also elevated at AST 1933 and ALT 947. Chest x-ray showed significant bilateral pneumonia Rx: Patient received pressor support and tried to adequately fluid resuscitate him as well as treat possible underlying sepsis Troponinemia Likely NSTEMI from demand ischemia EKG did not show any ST segment elevations Troponins were elevated at 8.889 Will trend troponins Cardiology, Dr. Sweet is on board Resp Acute hypoxic respiratory failure Likely secondary to bilateral pneumonia Patient is saturating well on 3 L nasal cannula however he did desat to the low 80s without it. Chest x-ray showed bilateral pneumonia Patient received Zosyn in the ER Will start patient Rocephin from tomorrow and trend for white count and fevers GI Dark stools Likely possible underlying UGIB Patient had one large dark bloody foul smelling stool Protonix 40 mg IV BID NPO GI consult Renal TANNER Likely ATN We do not have patient recent creatinine baseline as the last time he was here was in 2011 he is with a creatinine of 0.9 He presented with a BUN of 71 and creatinine of 2.7 patient looks severely dehydrated UA shows dark appearance with 3+ protein and 2+ glucose as well as amorphous crystals Plan: Will try to resuscitate the patient and monitor ins and outs Metabolic acidosis Likely secondary to lactic acid from decreased perfusion and inability to clear due to TANNER Will continue to fluid resuscitate and trend lactic acid Hyperkalemia Patient presented with potassium of 6.5 10 units of insulin IV were given in the ER as well as calcium gluconate Will repeat renal panel in treat Endocrine Type 2 diabetes Ordered A1c Patient presented with a glucose of 515 Insulin sliding scale added every 6 hours ID/Skin Sepsis secondary to pneumonia Patient presented with bilateral pneumonia on x-ray and he desatted to the 80s in the ER Patient received a dose of Zosyn in the ER Will start patient on Rocephin tomorrow for pneumonia UA did not show any signs of infection Follow-up blood cultures Hematology #Acute on chronic anemia ABLA Patient presented with hemoglobin 7.1 which decreased to 6.5 after fluid resuscitation Patient had one large dark stool likely UGIB. Patient does have a history of prostate cancer Plan: 2 packed PRBCs ordered Transfuse now Follow-up iron panel and reticulocyte count H&H Q8H Hospital Maintenance: FEN: NPO DVT PPx: Heparin subcu GI PPx: None IV lines: Peripheral IV in right IJ Maria: In Code Status: DNR/DNI Dispo: Patient will remain in the ICU for further management of his shock I discussed patient's care with analyst microbiology lab, Dr Musa Contreras MD, PGY3
[2024-07-09] MEDS: INSULIN HUM REGULAR 1 UNIT/0.01 ML (PER UNIT) 10 UNIT IV ×3 (14:49→22:06)
--- NOTE | 2024-07-09 15:16 | PC.CC ---
Patient presents to the hospital for shock. Alejandra LAWTON made [id number] contact with patient. ASW introduced self, role, and reason for visit. Patient was not alert and oriented. ASW completed initial assessment with patient's son, Sammy Mae . Patient's son confirmed information on demographics. Patient is non-ambulatory and is max assist with his ADLs. Patient does not use oxygen at home. Patient goes to [facility] and uses [facility] for prescription medications. Upon discharge patient's son uis going to take the patient back home. hotel services sales representative to follow up with any discharge needs.
--- NOTE | 2024-07-09 15:25 | XR_ITS ---
Examination: AP chest single view Technique: AP portable semiupright chest single view Date and time: July 09, 2024 1545 hrs. Comparison July 09, 2024 1211 hrs. Indications: Post central line placement. Findings: Right internal jugular central line tip SVC satisfactory position, no pneumothorax Bilateral perihilar pneumonia. Significant osteopenia. No significant cardiac enlargement Impression: Interval right internal jugular central line tip SVC satisfactory position No pneumothorax.
[2024-07-09 15:45] LABS: Reflex Lactate? Y
--- NOTE | 2024-07-09 15:59 | EDNOTE_ITS ---
Attestation Attestation Indication: For distributive shock req pressor support Right IJV central Line placement A time out was performed. My hands were washed immediately prior to the procedure. I wore a surgical cap, mask with protective eyewear, full gown and sterile gloves throughout the procedure. The patient was placed in Trendelenburg position. Right chest region was prepped using chlorhexidine scrub and draped in sterile fashion using a full drape and sterile probe cover and sterile gel employed. The medial and lateral heads of the sternocleidomastoid muscle were identified as was the carotid pulse. The Right Internal Jugular vein was identified using the ultrasound. Anesthesia was achieved over the vein using 1% lidocaine. Using real-time out of plane guidance, the introducer needle was inserted into the Rt Internal Jugular vein under direct ultrasound visualization. Venous blood was withdrawn. The syringe was removed and a guidewire was advanced into the introducer needle. The guidewire was visualized in the Internal Jugular Vein by ultrasound. A small incision was made at the skin surface with a scalpel and the introducer needle was exchanged for a dilator over the guidewire. After appropriate dilation was obtained, the dilator was exchanged over the wire for a central venous catheter. The wire was removed and the catheter was sutured in place. A sterile sorbaview shield was placed over the catheter at the insertion site. The patient tolerated the procedure wit hout any hemodynamic compromise. At time of procedure completion, all ports aspirated and flushed properly. Post-procedure chest x-ray is pending at this time. Estimated blood loss is <5cc. -- Proceedure performed under the supervision of Senior Resident Physician, Dr Diane MALONEY PGY-[address] Altaf MALONEY PGY-3 Fernando Lorenzo MD,PGY2
[2024-07-09 16:04] LABS: Base Excess, Venous -15 (-3-3); Basophils % (Auto) 0 % (0-2.5); Eosinophils % (Auto) 0 % (0-10); Hematocrit 20.9 % (41.0-53.0); Immature Granulocytes % (Auto) 1 % (0-0); Immature Granulocytes Auto 0.13 Thou/mm3 (0.00-0.00); Lymphocytes # (Auto) 1.5 Thou/mm3 (1.0-4.8); Lymphocytes % (Auto) 12 % (10-50); Mean Corpuscular HGB Conc 31.1 g/dl (31.0-37.0); Mean Corpuscular Hemoglobin 28.5 pg (25.0-35.0); Mean Corpuscular Volume 92 fL (80-100); Monocytes # (Auto) 0.3 Thou/mm3 (0.0-0.8); Monocytes % (Auto) 2 % (0-12); Neutrophils # (Auto) 10.5 Thou/mm3 (1.8-7.7); Neutrophils % (Auto) 85 % (37-80); Nucleated Red Blood Cell # 0.03 Thou/mm3 (0.00-0.00); Nucleated Red Blood Cell % 0 /100 WBC (0); O2 Saturation, Venous 69 % (96-97); PCO2, Venous 30 mmHg (36-56); PO2, Venous 53 mmHg (15-58); Platelet Count 347 Thou/mm3 (140-440); RDW Standard Deviation 53.6 fL (35.1-43.9); Red Blood Count 2.28 Miln/mm3 (4.50-5.90); White Blood Count 12.4 Thou/mm3 (3.8-10.6)
[2024-07-09 16:06] LABS: Hemoglobin 6.5 g/dL (13.5-16.0)
[2024-07-09] MEDS: CALCIUM GLUC/NS 1000MG IVPB 1,000 MG/50 ML BAG 50 MG IV (16:15)
--- NOTE | 2024-07-09 16:35 | XR_ITS ---
Examination: Duplex scan of the lower extremity, unilateral right Date and time of exam: July 09, 2024 1714 hours INDICATIONS: History bilateral leg amputations and leg swelling beginning discrete Technique: Duplex scan of the extremity veins using B-mode/grayscale imaging and Doppler spectral analysis and color flow Attention is directed to internal echogenicity, compression and augmentation involving these veins, color flow assessment, spectral analysis Findings: Major deep venous structures in the extremity demonstrate normal course and caliber. There is no evidence of deep vein thrombosis. Right popliteal peroneal posterior tibial veins not included in this study given the amputation Normal color flow and spectral analysis Impression: No DVT demonstrated
[2024-07-09 16:42] LABS: Immature Reticulocyte Fraction 29.2 % (2.3-13.4); Reticulocyte % (Auto) 1.9 % (0.5-1.5); Reticulocyte Absolute Auto 44.2 Biln/L (25.0-75.0)
[2024-07-09 16:54] LABS: Path Review Blood Smear Sent to Pathologist
[2024-07-09 17:08] LABS: Glucose Estimated Average 160 mg/dL (80-131); Hemoglobin A1C 7.2 % Hgb (4.8-6.0)
[2024-07-09 17:09] LABS: Iron 46 mcg/dL (65-175); Percent Iron Saturation 26 % (20-55); Total Iron Binding Capacity 171 mcg/dL (250-425); Unsaturated Iron Binding 125 (225-295)
--- NOTE | 2024-07-09 17:09 | PC.NURSE ---
Pt's POC Sammy Mae (son) called for med reconciliation. Per pt's son, he is unable to recall all the meds his dad takes at home so he will bring them in when he visits.
[2024-07-09 17:10] LABS: Albumin, Serum 2.8 gm/dL (3.4-4.8); Anion Gap 22 (7-16); BUN/Creatinine Ratio 26 Ratio (12-20); Blood Urea Nitrogen 67 mg/dL (9-23); Calcium 7.1 mg/dL (8.3-10.6); Calcium (Corrected) 8.1 mg/dL (8.5-10.1); Chloride 107 mMol/L (98-107); Creatinine (Component) 2.6 mg/dL (0.6-1.3); Estimated Creatinine Clearance 14.7 mL/min (>60); Osmolality,Calculated 320 (275-295); Phosphorous 5.2 mg/dL (2.4-5.1); Potassium 5.5 mMol/L (3.4-5.1); Sodium 141 mMol/L (136-145); eGFR 24 See Note
[2024-07-09 17:16] LABS: Carbon Dioxide 12.4 mMol/L (20.0-31.0); Glucose 467 mg/dL (74-106)
--- NOTE | 2024-07-09 17:25 | ESCONSULT_ITS ---
HPI Data of Consult Requesting Physician: Braeden Vigil MD Admitting Provider: Braeden Vigil MD Attending Provider: Braeden Vigil MD Primary Care Provider: Nathan Joe MD Consult Narrative History of present illness: This is an 78-year-old male PMHx of HTN, carotid enterectomy, PM, s/p bilateral BKA, prostate cancer, presenting to the ED with several days of generalized weakness and difficulty eating and swallowing. He is slightly altered, history was obtained from son at bedside. 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 He generally had an active lifestyle, however had a large stroke 5 years ago and was admitted at [facility], resulted in bilateral vision loss, and has been progressively worsening since. He has a history of DM with osteomyelitis of angela LE, had BKA done of angela LE, 2016 then 2020. Previously he relied on prosthetic for ambulation, however over the last 2 years, he has been increasingly weak and mostly bedridden. He has 5 children, lives with one of them, is . Son has noted recurrent episodes of diarrhea and dark stole here and there, however he states his BM mostly brown and regular. Over the last week or so, he has been coughing more that usual, unable to clear his throat. Associated with that is decline in oral intake, including fluids. He was seen by his PCP last week who suspected URI but did not initiate ABX. At baseline, he is talkative, recognized family members. However, he is endorsing worsening confusion over the last week, but seemed especially confused this morning, minimally responsive, which promoted his admission to the hospita. ADMISSION COURSE: * Afebrile, BP 78/48, HR 72, RR 17, satting 98% on 3L NC. * Hgb 7.2 > 6.5, MCV 89, PLT 313, WBC 9.4 > 12.4. * PT 16.5, INR 1.6, PTT 25.2 * VBG pH 7.31 > 7.2, pCO2 38 > 30, pO2 37 > 53. * Potassium 6.5 > 5.5, CO2 18.7 > 12.4, BUN 71 > 67, CR 2.7 > 2.6, EGFR 24, GLUCOSE 515 > 467, LA 6.3> 10.0, corrected calcium 8.1, phosph 5.2, Iron 46L, TIBC 171L, Iron saturation 26N, AST 1933, ALT 947, ALP 1207. * Troponin 8.889 (repeat pending), BNP pending, BHB 1.4, pro-calc 0.90. * UA showed 3+ protein, 2+ glucose, no ketones, no UTI. * EKG sinus HR 84, mild ST depression in V4-V5. * CXR showed sig bilateral PNA * Head CT negative for acute pathology. * Venous doppler negative for LE DVT bilaterally. He was admitted to ICU for pressors and volume resuscitation. Cardiology was consulted for elevated troponin. Most likely has NSTEMI type II, demand ischemia in settings of chronic blood loss anemia and volume depletion. Although he likely has underlying CAD given long standing DM, PAD with angela BKA, however, he is not a candidate for CATH at this point. Recommended avoiding anti-coags for now, pRBC transfusions (at least 2 units), volume resuscitation, and LASIX as needed for volume overload. Will continue trending troponin. cc:: cc: Braeden Vigil MD Exam Vital Signs Temp Pulse Resp BP Pulse Ox O2 Del Method O2 Flow Rate 98.9 F 88 24 H 93/68 99 Nasal Cannula 3 07/09/24 16:35 07/09/24 17:16 07/09/24 17:16 07/09/24 17:16 07/09/24 17:16 07/09/24 14:40 07/09/24 14:40 Narrative Exam GENERAL * Ill-appearing eldely male, NAD, on NC satting well. HEENT * NCAT.?TAMELA. Oral mucosa is moist. Patent Nares NECK * Supple, nontender, no thyromegaly, no meningismus, no JVD, no step offs CHEST * RRR, no m/g/r * CTAB, no w/r/r. Symmetrical chest rise. No intercostal subcostal retraction * Atraumatic, nontender, no crepitus, symmetrical expansion. ABDOMEN * Soft, flat, nontender. No guarding/rebound tenderness/masses. * Bowel sounds presents EXTREMITIES * Bilateral BKA noted, stump intakt. 2+ BKA edema on the right. SKIN * Warm and dry, no jaundice/rashes. NEUROMUSCULAR * No lumbar or midline, no CVA, no paraspinal muscle spasm or tenderness. * Moves all 4 extremities well, with full ROM and good CSM. PSYCHIATRY * Normal mood and affect, cooperative, no SI or HI or hallucinations. Results Labs 07/09/24 15:45 07/09/24 17:03 Labs: Short CBC 07/09/24 07/09/24 Range/Units 12:25 15:45 WBC 9.4 12.4 H (3.8-10.6) Thou/mm3 Hgb 7.2 L 6.5 L* (13.5-16.0) g/dL Hct 22.8 L 20.9 L* (41.0-53.0) % Plt Count 313 347 D (140-440) Thou/mm3 BMP 07/09/24 07/09/24 12:25 15:45 Sodium 139 141 Potassium 6.5 H* 5.5 H D Chloride 105 107 Carbon Dioxide 18.7 L 12.4 L* BUN 71 H 67 H Creatinine 2.7 H 2.6 H Glucose 515 H* 467 H* Calcium 6.9 L 7.1 L Cardiac Enzymes 07/09/24 Range/Units 12:25 Troponin I 8.889 H* (0.0-0.045) ng/mL Liver Function 07/09/24 07/09/24 Range/Units 12:25 15:45 Total Bilirubin 0.4 (0.3-1.2) mg/dL AST 1933 H* (0-34) U/L ALT 947 H* (10-49) U/L Alkaline Phosphatase 1207 H (46-116) U/L Albumin 2.8 L 2.8 L (3.4-4.8) gm/dL Urine 07/09/24 Range/Units 14:05 Urine Color Yellow (Lt Yel-Yel) Urine Clarity Hazy (Clear/Hazy) Urine pH 6.0 (5.0-7.0) Ur Specific [place] 1.023 (1.001-1.035) Urine Protein 3+ A (Neg - Trace) Urine Glucose (UA) 2+ A (Negative) ABG Interpretation ABG results: 07/09/24 07/09/24 12:25 15:45 VBG pH 7.31 L 7.20 L VBG pCO2 38 30 L VBG pO2 37 53 VBG Base Excess -7 L -15 L Quality Measures Quality Measures sepsis Current suspected stage: ruled out Possible source: pulmonary (Aspiration pneumonia) Blood cultures ordered: yes Antibiotic ordered: Yes and none Advance care planning discussed with:: patient Medications Home Medications and Allergies Home Medications ?Medication ?Instructions ?Recorded ?Confirmed ?Type acetazolamide 250 mg tablet 125 mg PO QDAY 04/26/19 History alogliptin 6.25 mg tablet 6.25 mg PO QAM 04/26/19/06/12 History brimonidine 0.1 % eye drops 1 drp ophthalmic (eye) TID 04/26/19 04/27/19 History losartan 50 mg tablet 50 mg PO QDAY 04/26/1904/26 History simvastatin 10 mg tablet 10 mg PO QPM 04/26/19 History timolol maleate 0.5 % once daily 1 drp ophthalmic (eye ) BID 04/26/19 04/27/19 History eye drops metformin 1,000 mg tablet 1,000 mg PO QDAY 04/27/19 History Allergies Allergy/AdvReac Type Severity Reaction Status Date / Time No Known Allergies Allergy Verified 07/09/24 10:57 Visit Medications Acetaminophen (Acetaminophen 325 Mg Tablet) 650 mg PO Q6H PRN PRN Reason: Fever >101.5 Stop: 08/08/24 14:19 Acetaminophen (Acetaminophen 325 Mg Tablet) 650 mg PO Q6H PRN PRN Reason: PAIN SCALE 1-3 (mild Stop: 08/08/24 14:19 Dextrose (Dextrose 50%-Water Inj 50 Ml Syringe) 25 ml IV Q15MIN PRN PRN Reason: BG 50-70 responsive npo pt Stop: 08/08/24 16:23 Dextrose (Dextrose 50%-Water Inj 50 Ml Syringe) 50 ml IV Q15MIN PRN PRN Reason: BG <50 OR BG <70 & pt unresponsive Stop: 08/08/24 16:23 Glucagon (Glucagon Inj 1 Mg Vial) 1 mg IM Q15MIN PRN PRN Reason: BG <70, and no IV access Norepinephrine/Dextrose (Levophed In D5w 8mg/250ml) 8 mg in 250 mls @ 4.295 mls/hr IV .Q24H PRN; Protocol PRN Reason: PER PROTOCOL Stop: 08/08/24 13:42 Last Titration: 07/09/24 16:35 Dose: 0.31 mcg/kg/min, 26.629 mls/hr Ceftriaxone Sodium/Dextrose (Rocephin/D5w 1gm Iv Premix) 1 gm in 50 mls @ 100 mls/hr IV QDAY PAUL Stop: 07/17/24 08:59 Vasopressin/Sodium Chloride (Vasostrict/Ns Ivpb) 20 unit in 100 mls @ 9 mls/hr IV .Q11H7M PRN; Protocol PRN Reason: PER PROTOCOL Stop: 08/08/24 14:57 Insulin Human Lispro (Insulin Lispro (Admelog) 1 Unit/0.01 Ml Unit) 0 unit SC Q6HR PAUL; Protocol Stop: 08/08/24 17:59 Ondansetron HCl (Ondansetron Inj 2 Mg/Ml Inj 2 Ml) 4 mg IV Q6H PRN; Protocol PRN Reason: NAUSEA OR VOMITING Stop: 08/08/24 14:19 Pantoprazole Sodium (Pantoprazole Inj 40 Mg Vial) 40 mg IVP BID [facility] Stop: 08/08/24 17:04 Discontinued Medications Dextrose (Dextrose 50%-Water Inj 50 Ml Syringe) 50 ml IV X1 ONE Stop: 07/09/24 14:35 Last Admin: 07/09/24 16:17 Dose: Not Given Heparin Sodium (Porcine) (Heparin Sod Inj 5000 Unit/Ml Vial) 5,000 unit SC Q8HR [facility] Stop: 07/23/24 21:59 Sodium Chloride (Ns) 1,000 mls @ 999 mls/hr IV .Q1H1M ONE Stop: 07/09/24 12:49 Last Infusion: 07/09/24 13:11 Dose: Infused Sodium Chloride (Ns) 500 mls @ 999 mls/hr IV .Q31M ONE Stop: 07/09/24 13:35 Last Infusion: 07/09/24 14:04 Dose: Infused Sodium Chloride (Ns) 500 mls @ 999 mls/hr IV .Q31M ONE Stop: 07/09/24 14:07 Last Infusion: 07/09/24 14:06 Dose: Infused Piperacillin/Tazobactam/Dextrose (Zosyn) 3.375 gm in 50 mls @ 100 mls/hr IV X1 ONE Stop: 07/09/24 14:07 Last Infusion: 07/09/24 14:38 Dose: Infused Insulin Human Regular (Myxredlin) 100 unit in 100 mls @ 4.581 mls/hr IV .[id number] PRN; Protocol PRN Reason: PER PROTOCOL Stop: 08/08/24 13:41 Calcium Gluconate/Sodium Chloride (Calcium Gluc/Ns 1000mg Ivpb) 1,000 mg in 50 mls @ 50 mls/hr IV X1 ONE Stop: 07/09/24 15:34 Last Admin: 07/09/24 16:15 Dose: 50 mls/hr Ceftriaxone Sodium/Dextrose (Rocephin/D5w 1gm Iv Premix) 1 gm in 50 mls @ 100 mls/hr IV QDAY PAUL Stop: 07/16/24 14:35 Last Admin: 07/09/24 14:52 Dose: Not Given Insulin Human Regular (Insulin Hum Regular 1 Unit/0.01 Ml (Per Unit)) 8 unit IV X1 ONE Stop: 07/09/24 13:45 Last Admin: 07/09/24 14:05 Dose: Not Given Insulin Human Regular (Insulin Hum Regular 1 Unit/0.01 Ml (Per Unit)) 10 unit IV X1 ONE Stop: 07/09/24 14:35 Last Admin: 07/09/24 14:49 Dose: 10 unit Methylprednisolone Sodium Succinate (Methylprednisolone Sod Succ 62.5 Mg/Ml 2ml Vial) 125 mg IVP X1 ONE Stop: 07/09/24 11:50 Last Admin: 07/09/24 12:25 Dose: 125 mg Sodium Bicarbonate (Sodium Bicarb Inj 8.4% 1 Meq/Ml 50 Ml Vial) 100 meq IV X1 ONE Stop: 07/09/24 13:45 Last Admin: 07/09/24 14:05 Dose: Not Given Assessment & Plan Plan This is an 78-year-old male PMHx of HTN, carotid enterectomy, PM, s/p bilateral BKA, prostate cancer, presenting to the ED with several days of generalized weakness and difficulty eating and swallowing. Hypovolemic Shock NSTEMI Type 2 more likely than Type 1 Troponin peak 8.889, most likely demand ischemia in setting of chronic blood loss anemia and volume depletion. EKG sinus with mod ST depression in V4-V5. Although he most likely has CAD given PAD and BKA. However, unlikely he is a candidate at this point nor would it improve his functional status given his comorbidities. Recommended blood transfusions, at least 2 units, volume resuscitation, may give LASIX as needed for volume overload. Continue with pressor support at this time. Okay to trend troponin. Will consider cath once he is stabilized, and if family requests. Will follow-up with pending BNP. Maintain K > 4.0 and Mg > 2.0 Hyperkalemia He recieved INSULIN and CALCIUM GLUC, potassium 6.0. Recommended repeat K Q4H, treat as needed. Acute Encephalopathy AHRF Acute blood loss anemia TANNER Metabolic acidosis Management of rest of the medical conditions as per primary team and other consultants. Thank you for the consult and allowing me to participate in the care of the patient. Cardiology will continue to follow. Case was discussed with attending, Dr. Sweet. Cinthya Adams DO PGYI
[2024-07-09] MEDS: INSULIN LISPRO (AdmeLOG) 1 UNIT/0.01 ML UNIT SC (18:00)
[2024-07-09] MEDS: PANTOPRAZOLE INJ 40 MG VIAL IVP ×2 (18:00→20:06)
[2024-07-09] MEDS: VASOPRESSIN IN NS IVPB 20 UNIT/100 ML BAG 9 UNIT IV (18:04)
[2024-07-09 18:18] LABS: Troponin I 8.454 ng/mL (0.0-0.045)
[2024-07-09 18:34] LABS: B-Type Natriuretic Peptide > 3280 pg/mL (0-100)
[2024-07-09 18:42] LABS: Alanine Aminotransferase 996 U/L (10-49); Albumin, Serum 2.8 gm/dL (3.4-4.8); Albumin/Globulin Ratio 1.3 (1.2-2.2); Alkaline Phosphatase 1097 U/L (46-116); Anion Gap 20 (7-16); BUN/Creatinine Ratio 24 Ratio (12-20); Bilirubin,Total 0.5 mg/dL (0.3-1.2); Blood Urea Nitrogen 66 mg/dL (9-23); Calcium 7.9 mg/dL (8.3-10.6); Calcium (Corrected) 8.9 mg/dL (8.5-10.1); Chloride 106 mMol/L (98-107); Creatinine (Component) 2.8 mg/dL (0.6-1.3); Estimated Creatinine Clearance 13.6 mL/min (>60); Globulin 2.2 gm/dL (2.3-3.5); Osmolality,Calculated 313 (275-295); Sodium 138 mMol/L (136-145); eGFR 22 See Note
[2024-07-09 18:45] LABS: Carbon Dioxide 11.9 mMol/L (20.0-31.0)
[2024-07-09 18:46] LABS: Glucose 436 mg/dL (74-106)
[2024-07-09 18:47] LABS: Lactate (Lactic Acid) 11.5 mMol/L (0.4-2.0)
[2024-07-09 18:47] LABS: Aspartate Amino Transferase 2130 U/L (0-34)
[2024-07-09] MEDS: Norepinephrine/NS 16mg/250ml 16 MG/250 ML BAG 15.891 MG IV (20:00)
[2024-07-09 21:33] LABS: Reflex Lactate? Y
[2024-07-09 21:45] LABS: Lactic Acid, 3 HR 14.1 mMol/L (0.4-2.0)
[2024-07-09 21:46] LABS: Potassium 6.2 mMol/L (3.4-5.1)
--- NOTE | 2024-07-09 21:53 | EKG_ITS ---
[facility] Test Date: 2024-07-09 Pat Name: ROM EDWARDS [facility] Gender[facility] Male [employer] Nutrition Supervisor: JERRELL : 1945 Requested By: Padma Murray Order Number: [id number] Reading MD: Padma Murray Measurements Intervals [place] Rate: 95 P: 47 ND: 153 QRS: 25 QRSD: 129 T: 211 QT: 378 QTc: 476 Interpretive Statements SINUS RHYTHM WITH SINUS ARRHYTHMIA MODERATE INTRAVENTRICULAR CONDUCTION DELAY ST DEVIATION AND MODERATE T-WAVE ABNORMALITY, CONSIDER ANTEROLATERAL ISCHEMIA Compared to ECG 07/09/2024 11:57:14 Intraventricular conduction delay now present T-wave abnormality now present Possible ischemia now present ST (T wave) deviation no longer present /store/S0/[id number].pdf
[2024-07-09 22:06] LABS: Hematocrit 29.7 % (41.0-53.0); Hemoglobin 9.1 g/dL (13.5-16.0)
[2024-07-09] MEDS: DEXTROSE 50%-WATER INJ 50 ML SYRINGE IV (22:07)
[2024-07-09] MEDS: ALBUTEROL RT 2.5 MG/0.5 ML NEBU 10 MG INH (22:35)
[2024-07-09 23:59] LABS: Base Excess -23 (-3-3); HCO3 4 mEq/L (20-26); Inspired Oxygen, FIO2 28 %; O2 Saturation 99 % (91-98); PCO2 12 mmHg (32.0-48.0); PO2 151 mmHg (83-108)
[2024-07-10] VITALS (70 sets, daily range): BP systolic 58–151; BP diastolic 32–106; PULSE 82–144; RESP 16–38; TEMP 35.9–36.2; O2SAT 89–99; BMI 18.2
[2024-07-10 00:03] LABS: Allen Test Performed/OK; Puncture Site Right Radial
[2024-07-10 00:04] LABS: pH, Arterial 7.12 (7.35-7.45)
[2024-07-10] MEDS: Sodium Bicarb Inj 8.4% SYR 50 ML SYRINGE IV ×2 (00:11→00:12)
[2024-07-10] MEDS: INSULIN LISPRO (AdmeLOG) 1 UNIT/0.01 ML UNIT SC ×2 (00:27→06:30)
--- NOTE | 2024-07-10 01:15 | EKG_ITS ---
[facility] Test Date: 2024-07-10 Pat Name: ROM EDWARDS [facility] Manager Documentation: TACHO : 1945 Requested By: Padma Murray Order Number: [id number] Reading MD: Padma Murray Measurements Intervals [place] Rate: 110 P: SC: QRS: 31 QRSD: 108 T: 209 QT: 300 QTc: 407 Interpretive Statements ATRIAL FIBRILLATION WITH RAPID VENTRICULAR RESPONSE LOW QRS VOLTAGE IN EXTREMITY LEADS MODERATE INTRAVENTRICULAR CONDUCTION DELAY ST DEVIATION AND MODERATE T-WAVE ABNORMALITY, CONSIDER ANTERIOR ISCHEMIA Compared to ECG 07/09/2024 22:14:54 Low QRS voltage now present Sinus rhythm no longer present Sinus arrhythmia no longer present T-wave abnormality still present Possible ischemia still present /store/S0/[id number].pdf
[2024-07-10 01:34] LABS: Hematocrit 32.8 % (41.0-53.0); Hemoglobin 10.6 g/dL (13.5-16.0)
[2024-07-10] MEDS: FUROSEMIDE INJ 10 MG/ML 4ML VIAL 40 MG IVP (01:50)
[2024-07-10 01:58] LABS: Albumin, Serum 2.8 gm/dL (3.4-4.8); Anion Gap 26 (7-16); BUN/Creatinine Ratio 24 Ratio (12-20); Blood Urea Nitrogen 68 mg/dL (9-23); Calcium 7.7 mg/dL (8.3-10.6); Calcium (Corrected) 8.7 mg/dL (8.5-10.1); Chloride 109 mMol/L (98-107); Creatinine (Component) 2.8 mg/dL (0.6-1.3); Estimated Creatinine Clearance 13.6 mL/min (>60); Glucose 309 mg/dL (74-106); Osmolality,Calculated 322 (275-295); Phosphorous 6.4 mg/dL (2.4-5.1); Potassium 5.3 mMol/L (3.4-5.1); Sodium 146 mMol/L (136-145); eGFR 22 See Note
[2024-07-10 01:59] LABS: Carbon Dioxide 11.2 mMol/L (20.0-31.0)
[2024-07-10 02:00] LABS: Troponin I 6.834 ng/mL (0.0-0.045)
[2024-07-10] MEDS: SOD POLYSTYRENE SULFON SUSP 15 GM/60 ML BTL 30 GM PO (02:04)
[2024-07-10 02:13] LABS: Lactate (Lactic Acid) 13.9 mMol/L (0.4-2.0)
[2024-07-10] MEDS: VASOPRESSIN IN NS IVPB 20 UNIT/100 ML BAG 9 UNIT IV (03:26)
[2024-07-10 04:36] LABS: Base Excess -15 (-3-3); HCO3 9 mEq/L (20-26); Inspired Oxygen, FIO2 28 %; O2 Saturation 98 % (91-98); PCO2 17 mmHg (32.0-48.0); PO2 102 mmHg (83-108); pH, Arterial 7.32 (7.35-7.45)
[2024-07-10 04:42] LABS: Allen Test Performed/OK; Puncture Site Right Radial
[2024-07-10 05:08] LABS: Reflex Lactate? Y
[2024-07-10 05:30] LABS: Base Excess, Venous -14 (-3-3); O2 Saturation, Venous 60 % (96-97); PCO2, Venous 23 mmHg (36-56); PO2, Venous 33 mmHg (15-58); pH, Venous 7.29 (7.33-7.66)
[2024-07-10 05:35] LABS: Basophils % (Auto) 0 % (0-2.5); Eosinophils % (Auto) 0 % (0-10); Hematocrit 33.6 % (41.0-53.0); Hemoglobin 10.9 g/dL (13.5-16.0); Immature Granulocytes % (Auto) 1 % (0-0); Immature Granulocytes Auto 0.14 Thou/mm3 (0.00-0.00); Lymphocytes # (Auto) 0.6 Thou/mm3 (1.0-4.8); Lymphocytes % (Auto) 6 % (10-50); Mean Corpuscular HGB Conc 32.4 g/dl (31.0-37.0); Mean Corpuscular Hemoglobin 28.1 pg (25.0-35.0); Mean Corpuscular Volume 87 fL (80-100); Monocytes # (Auto) 0.4 Thou/mm3 (0.0-0.8); Monocytes % (Auto) 4 % (0-12); Neutrophils # (Auto) 9.9 Thou/mm3 (1.8-7.7); Neutrophils % (Auto) 89 % (37-80); Nucleated Red Blood Cell # 0.29 Thou/mm3 (0.00-0.00); Nucleated Red Blood Cell % 3 /100 WBC (0); Platelet Count 119 Thou/mm3 (140-440); RDW Standard Deviation 53.2 fL (35.1-43.9); Red Blood Count 3.88 Miln/mm3 (4.50-5.90); White Blood Count 11.1 Thou/mm3 (3.8-10.6)
[2024-07-10 05:39] LABS: Lactic Acid, 3 HR 11.5 mMol/L (0.4-2.0)
[2024-07-10 06:56] LABS: Albumin, Serum 2.9 gm/dL (3.4-4.8); Albumin/Globulin Ratio 1.1 (1.2-2.2); Alkaline Phosphatase 1128 U/L (46-116); Anion Gap 24 (7-16); BUN/Creatinine Ratio 23 Ratio (12-20); Bilirubin,Total 1.8 mg/dL (0.3-1.2); Blood Urea Nitrogen 68 mg/dL (9-23); Calcium 7.8 mg/dL (8.3-10.6); Calcium (Corrected) 8.7 mg/dL (8.5-10.1); Cardiac Risk Estimate 8.7 RATIO (4.0-6.7); Chloride 109 mMol/L (98-107); Cholesterol 192 mg/dL (132-200); Creatinine (Component) 2.9 mg/dL (0.6-1.3); Globulin 2.6 gm/dL (2.3-3.5); Glucose 228 mg/dL (74-106); HDL Cholesterol 22 mg/dL (40-60); LDL Cholesterol,Calculated 146 mg/dL (0-130); Magnesium 2.7 mg/dL (1.6-2.6); Osmolality,Calculated 317 (275-295); Phosphorous 5.8 mg/dL (2.4-5.1); Potassium 5.6 mMol/L (3.4-5.1); Sodium 146 mMol/L (136-145); Total Protein 5.5 gm/dL (5.7-8.2); Triglycerides 119 mg/dL (30-150); eGFR 21 See Note
[2024-07-10 06:58] LABS: Carbon Dioxide 13.2 mMol/L (20.0-31.0)
[2024-07-10] MEDS: PANTOPRAZOLE INJ 40 MG VIAL IVP (07:02)
[2024-07-10 07:11] LABS: Alanine Aminotransferase 3186 U/L (10-49); Aspartate Amino Transferase > 6000 U/L (0-34)
[2024-07-10] MEDS: cefTRIAXone/D5w 1gm IV premix 1 GM/50 ML BAG IV (07:11)
--- NOTE | 2024-07-10 07:41 | XR_ITS ---
Examination: AP chest single view TECHNIQUE: Portable sitting AP chest single view Date and time: July 10, 2024 0740 hours Comparison July 09, 2024 INDICATIONS: Coughing and congestion this week, pneumonia FINDINGS: Worsening bilateral pneumonia Normal heart size Right internal jugular central line tip in satisfactory position, no pneumothorax IMPRESSION: Worsening bilateral pneumonia
--- NOTE | 2024-07-10 08:22 | ESPR_ITS ---
Documentation for date of: 07/10/24 Subjective Subjective Interval history: Overnight, had an episode of nonsustained HR in 140s. This morning, HR 98, BP 124/79. Appears more less alert, more drowsy this morning, had difficulty verbalizing answers, however nodded his head no for pain. Received 2 unit PRBCs, total of 2.4 L including blood. 24H urine output 129 cc, overall 2.9 L positive. Hgb improved 6.5 > 10.9 and stable, PLT 119, WBC 11.1. Occult blood test was negative this morning. Currently on LEVOPHED 0.20 only with adequate MAP. Despite resuscitation, no significant improvement in chemistry panel. CR 2.9, BUN 68, LA 11.5, AST greater than 6000, ALT 3186, troponin up 8.060, BNP>3200. He received 1 dose of LASIX 40 mg IV, urine output poor as stated above, has lower extremity edema, worse on the right. VBG pH 7.29, pCO2 23. Remains poor candidate for CATH at this time. Will continue to evaluate and proceed with cath if and when appropriate. For now, continue with resusitation, recommended additional diuresis, avoid anti-coags, continue trending troponin. Exam Vital Signs Temp Pulse Resp BP Pulse Ox O2 Del Method O2 Flow Rate 96.7 F L 98 38 H 124/79 90 L Nasal Cannula 2 07/10/24 08:00 07/10/24 08:00 07/10/24 08:00 07/10/24 08:00 07/10/24 08:00 07/10/24 05:01 07/10/24 05:01 Narrative Exam GENERAL * Ill-appearing eldely male, NAD, on NC satting well. HEENT * NCAT.?TAMELA. Oral mucosa is moist. Patent Nares NECK * Supple, nontender, no thyromegaly, no meningismus, no JVD, no step offs CHEST * RRR, no m/g/r * CTAB, no w/r/r. Symmetrical chest rise. No intercostal subcostal retraction * Atraumatic, nontender, no crepitus, symmetrical expansion. ABDOMEN * Soft, flat, nontender. No guarding/rebound tenderness/masses. * Bowel sounds presents EXTREMITIES * Bilateral BKA noted, stump intakt. 2+ BKA edema on the right, 1+ BKA edema on left. SKIN * Warm and dry, no jaundice/rashes. NEUROMUSCULAR * No lumbar or midline, no CVA, no paraspinal muscle spasm or tenderness. * Moves all 4 extremities well, with full ROM and good CSM. PSYCHIATRY * Normal mood and affect, cooperative, no SI or HI or hallucinations. Objective Labs 07/10/24 05:12 07/10/24 05:12 Labs: Laboratory Results - last 24 hr 07/09/24 07/09/24 07/09/24 12:25 14:03 14:05 WBC 9.4 RBC 2.55 L Hgb 7.2 L Hct 22.8 L MCV 89 MCH 28.2 MCHC 31.6 RDW Std Deviation 51.3 H Plt Count 313 Neut % (Auto) 89 H Lymph % (Auto) 5 L [place] % (Auto) 4 Eos % (Auto) 0 Baso % (Auto) 0 Neut # (Auto) 8.4 H Lymph # (Auto) 0.5 L [place] # (Auto) 0.4 Eos # (Auto) 0.0 Baso # (Auto) 0.0 Immature Gran # (Auto) 0.08 H Absolute Nucleated RBC 0.02 H Immature Gran % 1 H Nucleated RBC % 0 Smear Path Review Retic Count (auto) Absolute Retic Immature Retic Fraction Retic Hgb Content CHr PT 16.5 H INR 1.6 H APTT 25.2 Puncture Site ABG pH ABG pCO2 ABG pO2 ABG HCO3 ABG O2 Saturation ABG Base Excess VBG pH 7.31 L VBG pCO2 38 VBG pO2 37 VBG O2 Sat (Bacilio) 56 L VBG Base Excess -7 L FiO2 Sodium 139 Potassium 6.5 H* Chloride 105 Carbon Dioxide 18.7 L Anion Gap 15 BUN 71 H Creatinine 2.7 H Estim Creat Clear Calc 14.0 L eGFR 23 L BUN/Creatinine Ratio 26 H Glucose 515 H* Estimated Ave Glu mg/dL Hemoglobin A1c Calculated Osmolality 321 H Lactic Acid 6.3 H* Calcium 6.9 L Corrected Calcium 7.9 L Phosphorus Magnesium Iron TIBC Iron Saturation Unsat Iron Binding Total Bilirubin 0.4 AST 1933 H* ALT 947 H* Alkaline Phosphatase 1207 H Troponin I 8.889 H* B-Natriuretic Peptide Total Protein 5.3 L Albumin 2.8 L Globulin 2.5 Albumin/Globulin Ratio 1.1 L Triglycerides Cholesterol LDL Cholesterol, Calc HDL Cholesterol Cholesterol/HDL Ratio Beta-Hydroxybutyrate/Acetoacetate 1.4 H Procalcitonin 0.90 H Ur Collection Type Clean Catch Urine Color Yellow Urine Clarity Hazy Urine pH 6.0 Ur Specific [place] 1.023 Urine Protein 3+ A Urine Glucose (UA) 2+ A Urine Ketones Negative Urine Blood 1+ A Urine Nitrite Negative Urine Bilirubin Negative Urine Urobilinogen (Auto) Negative Ur Leukocyte Esterase Negative Urine RBC 9 H Urine WBC 3 Ur Squamous Epith Cells 0 Amorphous Crystals Present A Urine Bacteria None Blood Type O Positive Antibody Screen NEGATIVE Crossmatch See Detail Blood Bank Wristband ID Yes 07/09/24 07/09/24 07/09/24 15:45 17:03 18:28 WBC 12.4 H RBC 2.28 L Hgb 6.5 L* Hct 20.9 L* MCV 92 MCH 28.5 MCHC 31.1 RDW Std Deviation 53.6 H Plt Count 347 D Neut % (Auto) 85 H Lymph % (Auto) 12 [place] % (Auto) 2 Eos % (Auto) 0 Baso % (Auto) 0 Neut # (Auto) 10.5 H Lymph # (Auto) 1.5 [place] # (Auto) 0.3 Eos # (Auto) 0.0 Baso # (Auto) 0.0 Immature Gran # (Auto) 0.13 H Absolute Nucleated RBC 0.03 H Immature Gran % 1 H Nucleated RBC % 0 Smear Path Review Sent to Pathologist Retic Count (auto) 1.9 H Absolute Retic 44.2 Immature Retic Fraction 29.2 H Retic Hgb Content CHr 23.0 L PT INR APTT Puncture Site ABG pH ABG pCO2 ABG pO2 ABG HCO3 ABG O2 Saturation ABG Base Excess VBG pH 7.20 L VBG pCO2 30 L VBG pO2 53 VBG O2 Sat (Bacilio) 69 L D VBG Base Excess -15 L FiO2 Sodium 141 138 Potassium 5.5 H D 6.0 H D Chloride 107 106 Carbon Dioxide 12.4 L* 11.9 L* Anion Gap 22 H 20 H BUN 67 H 66 H Creatinine 2.6 H 2.8 H Estim Creat Clear Calc 14.7 L 13.6 L eGFR 24 L 22 L BUN/Creatinine Ratio 26 H 24 H Glucose 467 H* 436 H* Estimated Ave Glu mg/dL 160 H Hemoglobin A1c 7.2 H Calculated Osmolality 320 H 313 H Lactic Acid 10.0 H* 11.5 H* Calcium 7.1 L 7.9 L Corrected Calcium 8.1 L 8.9 Phosphorus 5.2 H Magnesium Iron 46 L TIBC 171 L Iron Saturation 26 Unsat Iron Binding 125 L Total Bilirubin 0.5 AST 2130 H* ALT 996 H* Alkaline Phosphatase 1097 H D Troponin I 8.454 H* D B-Natriuretic Peptide > 3280 H* Total Protein 5.0 L Albumin 2.8 L 2.8 L Globulin 2.2 L Albumin/Globulin Ratio 1.3 Triglycerides Cholesterol LDL Cholesterol, Calc HDL Cholesterol Cholesterol/HDL Ratio Beta-Hydroxybutyrate/Acetoacetate Procalcitonin Ur Collection Type Urine Color Urine Clarity Urine pH Ur Specific [place] Urine Protein Urine Glucose (UA) Urine Ketones Urine Blood Urine Nitrite Urine Bilirubin Urine Urobilinogen (Auto) Ur Leukocyte Esterase Urine RBC Urine WBC Ur Squamous Epith Cells Amorphous Crystals Urine Bacteria Blood Type Antibody Screen Crossmatch Blood Bank Wristband ID 07/09/24 07/09/24 07/10/24 21:09 23:55 00:50 WBC RBC Hgb 9.1 L D 10.6 L Hct 29.7 L 32.8 L MCV MCH MCHC RDW Std Deviation Plt Count Neut % (Auto) Lymph % (Auto) [place] % (Auto) Eos % (Auto) Baso % (Auto) Neut # (Auto) Lymph # (Auto) [place] # (Auto) Eos # (Auto) Baso # (Auto) Immature Gran # (Auto) Absolute Nucleated RBC Immature Gran % Nucleated RBC % Smear Path Review Retic Count (auto) Absolute Retic Immature Retic Fraction Retic Hgb Content CHr PT INR APTT Puncture Site Right Radial ABG pH 7.12 L* ABG pCO2 12 L* ABG pO2 151 H ABG HCO3 4 L* ABG O2 Saturation 99 H ABG Base Excess -23 L VBG pH VBG pCO2 VBG pO2 VBG O2 Sat (Bacilio) VBG Base Excess FiO2 28 Sodium Cancelled Potassium 6.2 H* Chloride Carbon Dioxide Anion Gap BUN Creatinine Estim Creat Clear Calc eGFR BUN/Creatinine Ratio Glucose Estimated Ave Glu mg/dL Hemoglobin A1c Calculated Osmolality Lactic Acid 14.1 H* Calcium Corrected Calcium Phosphorus Magnesium Iron TIBC Iron Saturation Unsat Iron Binding Total Bilirubin AST ALT Alkaline Phosphatase Troponin I B-Natriuretic Peptide Total Protein Albumin Globulin Albumin/Globulin Ratio Triglycerides Cholesterol LDL Cholesterol, Calc HDL Cholesterol Cholesterol/HDL Ratio Beta-Hydroxybutyrate/Acetoacetate Procalcitonin Ur Collection Type Urine Color Urine Clarity Urine pH Ur Specific [place] Urine Protein Urine Glucose (UA) Urine Ketones Urine Blood Urine Nitrite Urine Bilirubin Urine Urobilinogen (Auto) Ur Leukocyte Esterase Urine RBC Urine WBC Ur Squamous Epith Cells Amorphous Crystals Urine Bacteria Blood Type [facility]ody [facility] Wristband ID 07/10/24 07/10/24 07/10/24 00:50 00:50 00:50 WBC RBC Hgb Hct MCV MCH MCHC RDW Std Deviation Plt Count Neut % (Auto) Lymph % (Auto) [place] % (Auto) Eos % (Auto) Baso % (Auto) Neut # (Auto) Lymph # (Auto) [place] # (Auto) Eos # (Auto) Baso # (Auto) Immature Gran # (Auto) Absolute Nucleated RBC Immature Gran % Nucleated RBC % Smear Path Review Retic Count (auto) Absolute Retic Immature Retic Fraction Retic Hgb Content CHr PT INR APTT Puncture Site ABG pH ABG pCO2 ABG pO2 ABG HCO3 ABG O2 Saturation ABG Base Excess VBG pH VBG pCO2 VBG pO2 VBG O2 Sat (Bacilio) VBG Base Excess FiO2 Sodium 146 H Potassium Cancelled 5.3 H D Chloride Cancelled 109 H Carbon Dioxide Cancelled Anion Gap BUN Creatinine Estim Creat Clear Calc eGFR BUN/Creatinine Ratio Glucose Estimated Ave Glu mg/dL Hemoglobin A1c Calculated Osmolality Lactic Acid Calcium Corrected Calcium Phosphorus Magnesium Iron TIBC Iron Saturation Unsat Iron Binding Total Bilirubin AST ALT Alkaline Phosphatase Troponin I B-Natriuretic Peptide Total Protein Albumin Globulin Albumin/Globulin Ratio Triglycerides Cholesterol LDL Cholesterol, Calc HDL Cholesterol Cholesterol/HDL Ratio Beta-Hydroxybutyrate/Acetoacetate Procalcitonin Ur Collection Type Urine Color Urine Clarity Urine pH Ur Specific [place] Urine Protein Urine Glucose (UA) Urine Ketones Urine Blood Urine Nitrite Urine Bilirubin Urine Urobilinogen (Auto) Ur Leukocyte Esterase Urine RBC Urine WBC Ur Squamous Epith Cells Amorphous Crystals Urine Bacteria Blood Type Antibody Screen [facility] Blood [facility] Wristband ID 07/10/24 07/10/24 07/10/24 00:50 00:50 00:50 WBC RBC Hgb Hct MCV MCH MCHC RDW Std Deviation Plt Count Neut % (Auto) Lymph % (Auto) [place] % (Auto) Eos % (Auto) Baso % (Auto) Neut # (Auto) Lymph # (Auto) [place] # (Auto) Eos # (Auto) Baso # (Auto) Immature Gran # (Auto) Absolute Nucleated RBC Immature Gran % Nucleated RBC % Smear Path Review Retic Count (auto) Absolute Retic Immature Retic Fraction Retic Hgb Content CHr PT INR APTT Puncture Site ABG pH ABG pCO2 ABG pO2 ABG HCO3 ABG O2 Saturation ABG Base Excess VBG pH VBG pCO2 VBG pO2 VBG O2 Sat (Bacilio) VBG Base Excess FiO2 Sodium Potassium Chloride Carbon Dioxide 11.2 L* Anion Gap Cancelled 26 H BUN Cancelled 68 H Creatinine Cancelled Estim Creat Clear Calc eGFR BUN/Creatinine Ratio Glucose Estimated Ave Glu mg/dL Hemoglobin A1c Calculated Osmolality Lactic Acid Calcium Corrected Calcium Phosphorus Magnesium Iron TIBC Iron Saturation Unsat Iron Binding Total Bilirubin AST ALT Alkaline Phosphatase Troponin I B-Natriuretic Peptide Total Protein Albumin Globulin Albumin/Globulin Ratio Triglycerides Cholesterol LDL Cholesterol, Calc HDL Cholesterol Cholesterol/HDL Ratio Beta-Hydroxybutyrate/Acetoacetate Procalcitonin Ur Collection Type Urine Color Urine Clarity Urine pH Ur Specific [place] Urine Protein Urine Glucose (UA) Urine Ketones Urine Blood Urine Nitrite Urine Bilirubin Urine Urobilinogen (Auto) Ur Leukocyte Esterase Urine RBC Urine WBC Ur Squamous Epith Cells Amorphous Crystals Urine Bacteria Blood Type Antibody Screen Crossmatch Blood Bank Wristband ID 07/10/24 07/10/24 07/10/24 00:50 00:50 00:50 WBC RBC Hgb Hct MCV MCH MCHC RDW Std Deviation Plt Count Neut % (Auto) Lymph % (Auto) [place] % (Auto) Eos % (Auto) Baso % (Auto) Neut # (Auto) Lymph # (Auto) [place] # (Auto) Eos # (Auto) Baso # (Auto) Immature Gran # (Auto) Absolute Nucleated RBC Immature Gran % Nucleated RBC % Smear Path Review Retic Count (auto) Absolute Retic Immature Retic Fraction Retic Hgb Content CHr PT INR APTT Puncture Site ABG pH ABG pCO2 ABG pO2 ABG HCO3 ABG O2 Saturation ABG Base Excess VBG pH VBG pCO2 VBG pO2 VBG O2 Sat (Bacilio) VBG Base Excess FiO2 Sodium Potassium Chloride Carbon Dioxide Anion Gap BUN Creatinine 2.8 H Estim Creat Clear Calc Cancelled 13.6 L eGFR Cancelled 22 L BUN/Creatinine Ratio Cancelled Glucose Estimated Ave Glu mg/dL Hemoglobin A1c Calculated Osmolality Lactic Acid Calcium Corrected Calcium Phosphorus Magnesium Iron TIBC Iron Saturation Unsat Iron Binding Total Bilirubin AST ALT Alkaline Phosphatase Troponin I B-Natriuretic Peptide Total Protein Albumin Globulin Albumin/Globulin Ratio Triglycerides Cholesterol LDL Cholesterol, Calc HDL Cholesterol Cholesterol/HDL Ratio Beta-Hydroxybutyrate/Acetoacetate Procalcitonin Ur Collection Type Urine Color Urine Clarity Urine pH Ur Specific [place] Urine Protein Urine Glucose (UA) Urine Ketones Urine Blood Urine Nitrite Urine Bilirubin Urine Urobilinogen (Auto) Ur Leukocyte Esterase Urine RBC Urine WBC Ur Squamous Epith Cells Amorphous Crystals Urine Bacteria Blood Type Antibody Screen Crossnmtch Blood Bank Wristband ID 07/10/24 07/10/24 07/10/24 00:50 00:50 00:50 WBC RBC Hgb Hct MCV MCH MCHC RDW Std Deviation Plt Count Neut % (Auto) Lymph % (Auto) [place] % (Auto) Eos % (Auto) Baso % (Auto) Neut # (Auto) Lymph # (Auto) [place] # (Auto) Eos # (Auto) Baso # (Auto) Immature Gran # (Auto) Absolute Nucleated RBC Immature Gran % Nucleated RBC % Smear Path Review Retic Count (auto) Absolute Retic Immature Retic Fraction Retic Hgb Content CHr PT INR APTT Puncture Site ABG pH ABG pCO2 ABG pO2 ABG HCO3 ABG O2 Saturation ABG Base Excess VBG pH VBG pCO2 VBG pO2 VBG O2 Sat (Bacilio) VBG Base Excess FiO2 Sodium Potassium Chloride Carbon Dioxide Anion Gap BUN Creatinine Estim Creat Clear Calc eGFR BUN/Creatinine Ratio 24 H Glucose Cancelled [address] Glu mg/dL Hemoglobin A1c Calculated Osmolality Cancelled 322 H Lactic Acid 13.9 H* Calcium Cancelled Corrected Calcium Phosphorus Magnesium Iron TIBC Iron Saturation Unsat Iron Binding Total Bilirubin AST ALT Alkaline Phosphatase Troponin I B-Natriuretic Peptide Total Protein Albumin Globulin Albumin/Globulin Ratio Triglycerides Cholesterol LDL Cholesterol, Calc HDL Cholesterol Cholesterol/HDL Ratio Beta-Hydroxybutyrate/Acetoacetate Procalcitonin Ur Collection Type Urine Color Urine Clarity Urine pH Ur Specific [place] Urine Protein Urine Glucose (UA) Urine Ketones Urine Blood Urine Nitrite Urine Bilirubin Urine Urobilinogen (Auto) Ur Leukocyte Esterase Urine RBC Urine WBC Ur Squamous Epith Cells Amorphous Crystals Urine Bacteria Blood Type Antibody Screen Crossnmtch Blood Bank Wristband ID 07/10/24 07/10/24 07/10/24 00:50 00:50 00:50 WBC RBC Hgb Hct MCV MCH MCHC RDW Std Deviation Plt Count Neut % (Auto) Lymph % (Auto) [place] % (Auto) Eos % (Auto) Baso % (Auto) Neut # (Auto) Lymph # (Auto) [place] # (Auto) Eos # (Auto) Baso # (Auto) Immature Gran # (Auto) Absolute Nucleated RBC Immature Gran % Nucleated RBC % Smear Path Review Retic Count (auto) Absolute Retic Immature Retic Fraction Retic Hgb Content CHr PT INR APTT Puncture Site ABG pH ABG pCO2 ABG pO2 ABG HCO3 ABG O2 Saturation ABG Base Excess VBG pH VBG pCO2 VBG pO2 VBG O2 Sat (Bacilio) VBG Base Excess FiO2 Sodium Potassium Chloride Carbon Dioxide Anion Gap BUN Creatinine Estim Creat Clear Calc eGFR BUN/Creatinine Ratio Glucose Estimated Ave Glu mg/dL Hemoglobin A1c Calculated Osmolality Lactic Acid Calcium 7.7 L Corrected Calcium Cancelled 8.7 Phosphorus Cancelled 6.4 H Magnesium Iron TIBC Iron Saturation Unsat Iron Binding Total Bilirubin AST ALT Alkaline Phosphatase Troponin I Cancelled B-Natriuretic Peptide Total Protein Albumin Globulin Albumin/Globulin Ratio Triglycerides Cholesterol LDL Cholesterol, Calc HDL Cholesterol Cholesterol/HDL Ratio Beta-Hydroxybutyrate/Acetoacetate Procalcitonin Ur Collection Type Urine Color Urine Clarity Urine pH Ur Specific [place] Urine Protein Urine Glucose (UA) Urine Ketones Urine Blood Urine Nitrite Urine Bilirubin Urine Urobilinogen (Auto) Ur Leukocyte Esterase Urine RBC Urine WBC Ur Squamous Epith Cells Amorphous Crystals Urine Bacteria Blood Type Antibody Screen Crossmatch Blood Bank Wristband ID 07/10/24 07/10/24 07/10/24 00:50 00:50 04:25 WBC RBC Hgb Hct MCV MCH MCHC RDW Std Deviation Plt Count Neut % (Auto) Lymph % (Auto) [place] % (Auto) Eos % (Auto) Baso % (Auto) Neut # (Auto) Lymph # (Auto) [place] # (Auto) Eos # (Auto) Baso # (Auto) Immature Gran # (Auto) Absolute Nucleated RBC Immature Gran % Nucleated RBC % Smear Path Review Retic Count (auto) Absolute Retic Immature Retic Fraction Retic Hgb Content CHr PT INR APTT Puncture Site Right Radial ABG pH 7.32 L D ABG pCO2 17 L* ABG pO2 102 D ABG HCO3 9 L* ABG O2 Saturation 98 ABG Base Excess -15 L VBG pH VBG pCO2 VBG pO2 VBG O2 Sat (Bac[place]) VBG Base Excess FiO2 28 Sodium Potassium Chloride Carbon Dioxide Anion Gap BUN Creatinine Estim Creat Clear Calc eGFR BUN/Creatinine Ratio Glucose Estimated Ave Glu mg/dL Hemoglobin A1c Calculated Osmolality Lactic Acid Calcium Corrected Calcium Phosphorus Magnesium Iron TIBC Iron Saturation Unsat Iron Binding Total Bilirubin AST ALT Alkaline Phosphatase Troponin I 6.834 H* D B-Natriuretic Peptide Total Protein Albumin Cancelled 2.8 L Globulin Albumin/Globulin Ratio Triglycerides Cholesterol LDL Cholesterol, Calc HDL Cholesterol Cholesterol/HDL Ratio Beta-Hydroxybutyrate/Acetoacetate Procalcitonin Ur Collection Type Urine Color Urine Clarity Urine pH Ur Specific [place] Urine Protein Urine Glucose (UA) Urine Ketones Urine Blood Urine Nitrite Urine Bilirubin Urine Urobilinogen (Auto) Ur Leukocyte Esterase Urine RBC Urine WBC Ur Squamous Epith Cells Amorphous Crystals Urine Bacteria Blood Type Antibody Screen Crossmatch Blood Bank Wristband ID 07/10/24 05:12 WBC 11.1 H RBC 3.88 L Hgb 10.9 L Hct 33.6 L MCV 87 MCH 28.1 MCHC 32.4 RDW Std Deviation 53.2 H Plt Count 119 L D Neut % (Auto) 89 H Lymph % (Auto) 6 L [place] % (Auto) 4 Eos % (Auto) 0 Baso % (Auto) 0 Neut # (Auto) 9.9 H Lymph # (Auto) 0.6 L [place] # (Auto) 0.4 Eos # (Auto) 0.0 Baso # (Auto) 0.0 Immature Gran # (Auto) 0.14 H Absolute Nucleated RBC 0.29 H Immature Gran % 1 H Nucleated RBC % 3 H Smear Path Review Retic Count (auto) Absolute Retic Immature Retic Fraction Retic Hgb Content CHr PT INR APTT Puncture Site ABG pH ABG pCO2 ABG pO2 ABG HCO3 ABG O2 Saturation ABG Base Excess VBG pH 7.29 L VBG pCO2 23 L VBG pO2 33 D VBG O2 Sat (Bacilio) 60 L VBG Base Excess -14 L FiO2 Sodium 146 H Potassium 5.6 H Chloride 109 H Carbon Dioxide 13.2 L* Anion Gap 24 H BUN 68 H Creatinine 2.9 H Estim Creat Clear Calc 13.0 L eGFR 21 L BUN/Creatinine Ratio 23 H Glucose [address] Glu mg/dL Hemoglobin A1c Calculated Osmolality 317 H Lactic Acid 11.5 H* Calcium 7.8 L Corrected Calcium 8.7 Phosphorus 5.8 H Magnesium 2.7 H Iron TIBC Iron Saturation Unsat Iron Binding Total Bilirubin 1.8 H D AST > 6000 H* ALT 3186 H* Alkaline Phosphatase 1128 H D Troponin I 8.060 H* D B-Natriuretic Peptide Total Protein 5.5 L Albumin 2.9 L Globulin 2.6 Albumin/Globulin Ratio 1.1 L Triglycerides 119 Cholesterol 192 LDL Cholesterol, Calc 146 H HDL Cholesterol 22 L Cholesterol/HDL Ratio 8.7 H Beta-Hydroxybutyrate/Acetoacetate Procalcitonin Ur Collection Type Urine Color Urine Clarity Urine pH Ur Specific [place] Urine Protein Urine Glucose (UA) Urine Ketones Urine Blood Urine Nitrite Urine Bilirubin Urine Urobilinogen (Auto) Ur Leukocyte Esterase Urine RBC Urine WBC Ur Squamous Epith Cells Amorphous Crystals Urine Bacteria Blood Type Antibody Screen Crossmatch Blood Bank Wristband ID ABG Interpretation ABG results: 07/09/24 07/09/24 07/09/24 12:25 15:45 23:55 ABG pH 7.12 L* ABG pCO2 12 L* ABG pO2 151 H ABG HCO3 4 L* ABG O2 Saturation 99 H ABG Base Excess -23 L VBG pH 7.31 L 7.20 L VBG pCO2 38 30 L VBG pO2 37 53 VBG Base Excess -7 L -15 L 07/10/24 07/10/24 04:25 05:12 ABG pH 7.32 L D ABG pCO2 17 L* ABG pO2 102 D ABG HCO3 9 L* ABG O2 Saturation 98 ABG Base Excess -15 L VBG pH 7.29 L VBG pCO2 23 L VBG pO2 33 D VBG Base Excess -14 L Quality Measures Quality Measures sepsis Current suspected stage: ruled out Possible source: pulmonary (Aspiration pneumonia) Blood cultures ordered: yes Antibiotic ordered: Yes and none Advance care planning discussed with:: patient Assessment & Plan Assessment Current Active Medications: Generic Name Dose Route Start Last Admin Trade Name Freq PRN Reason Stop Dose Admin Acetaminophen 650 mg 07/09/24 14:20 Acetaminophen 325 Mg Tablet PO 08/08/24 14:19 Q6H PRN Fever >101.5 Acetaminophen 650 mg 07/09/24 14:20 Acetaminophen 325 Mg Tablet PO 08/08/24 14:19 Q6H PRN PAIN SCALE 1-3 (mild Dextrose 25 ml 07/09/24 16:24 Dextrose 50%-Water Inj 50 Ml Syringe IV 08/08/24 16:23 Q15MIN PRN BG 50-70 responsive npo pt Dextrose 50 ml 07/09/24 16:24 Dextrose 50%-Water Inj 50 Ml Syringe IV 08/08/24 16:23 Q15MIN PRN BG <50 OR BG <70 & pt unresponsive Glucagon 1 mg 07/09/24 16:24 Glucagon Inj 1 Mg Vial IM Q15MIN PRN BG <70, and no IV access Ceftriaxone Sodium/Dextrose 1 gm in 50 mls @ 100 mls/hr 07/10/24 09:00 07/10/24 07:11 Rocephin/D5w 1gm Iv Premix IV 07/17/24 08:59 100 mls/hr QDAY PAUL Administration Vasopressin/Sodium Chloride 20 unit in 100 mls @ 9 mls/hr 07/09/24 14:58 07/10/24 06:00 Vasostrict/Ns Ivpb IV 08/08/24 14:57 0.03 unit/min .Q11H7M PRN 9 mls/hr PER PROTOCOL Titration Protocol 0.03 UNIT/MIN Norepinephrine Bitartrate 16 mg in 250 mls @ 2.147 mls/hr 07/09/24 19:50 07/10/24 06:00 Levophed In Ns 16mg/250ml IV 08/08/24 19:49 0.19 mcg/kg/min .Q24H PRN 8.16 mls/hr PER PROTOCOL Titration Protocol 0.05 MCG/KG/MIN Calcium Gluconate/Sodium Chloride 1,000 mg in 50 mls @ 50 mls/hr 07/10/24 08:00 Calcium Gluc/Ns 1000mg Ivpb IV 07/10/24 08:59 X1 ONE Sodium Bicarbonate 150 meq/ 1,000 mls @ 100 mls/hr 07/10/24 08:15 Sodium Chloride IV 08/09/24 08:14 .Q10H [facility] Insulin Human Lispro 0 unit 07/10/24 10:00 Insulin Lispro (Admelog) 1 Unit/0.01 Ml Unit SC 08/09/24 09:59 Q4HR [facility] Protocol Ondansetron HCl 4 mg 07/09/24 14:20 Ondansetron Inj 2 Mg/Ml Inj 2 Ml IV 08/08/24 14:19 Q6H PRN NAUSEA OR VOMITING Protocol Pantoprazole Sodium 40 mg 07/09/24 17:05 07/10/24 07:02 Pantoprazole Inj 40 Mg Vial IVP 08/08/24 17:04 40 mg BID PAUL Administration Plan This is an 78-year-old male PMHx of HTN, carotid enterectomy, PM, s/p bilateral BKA, prostate cancer, presenting to the ED with several days of generalized weakness and difficulty eating and swallowing. Hypovolemic Shock NSTEMI Type 2 more likely than Type 1 Troponin peak 8.889, most likely demand ischemia in setting of chronic blood loss anemia and volume depletion. EKG sinus with mod ST depression in V4-V5. Although he most likely has CAD given PAD and BKA. However, unlikely he is a candidate at this point nor would it improve his functional status given his comorbidities. Completed 2 units pRBC, Hgb 10.9 and stable. Received total 2.9L in, 24H urine output 129 cc despite LASIX 40 mg x 1. Renal function remains poor. LFTs uptrending. BNP greater than 32K. Lactic acidosis overall improving, but slowly. Pressor support improving, now on LEVOPHED at 0.2. Troponin initially improved, now uptrending again, now 8.06. Has bilateral lower extremity edema noted on exam. Recommended blood transfusions as needed, continue with volume resuscitation, may give LASIX as needed for volume overload. Continue with pressor support at this time. Okay to trend troponin. Will consider cath once he is stabilized, and if family requests. Maintain K > 4.0 and Mg > 2.0 Hyperkalemia He recieved INSULIN and CALCIUM GLUC, potassium 6.0. Recommended repeat K Q4H, treat as needed. Acute Encephalopathy AHRF Acute blood loss anemia TANNER Metabolic acidosis Management of rest of the medical conditions as per primary team and other consultants. Thank you for the consult and allowing me to participate in the care of the patient. Cardiology will continue to follow. Case was discussed with attending, Dr. Sweet. Cinthya Adams DO PGYI
[2024-07-10] MEDS: SODIUM CHLORIDE 0.45% IV (08:50)
[2024-07-10] MEDS: Sodium Bicarb Inj 8.4% SYR 50 ML SYRINGE 100 ML IV (08:50)
[2024-07-10] MEDS: SODIUM BICARB IV (08:50)
[2024-07-10] MEDS: CALCIUM GLUC/NS 1000MG IVPB 1,000 MG/50 ML BAG 50 MG IV (08:51)
[2024-07-10 08:56] LABS: Lactate (Lactic Acid) 11.7 mMol/L (0.4-2.0)
[2024-07-10 09:03] LABS: Potassium 5.9 mMol/L (3.4-5.1)
[2024-07-10] MEDS: Morphine IV Drip 100mg/100ml 100 ML IV (11:15)
--- NOTE | 2024-07-10 14:10 | DES_ITS ---
Documentation for date of: 07/10/24 Summary Date and Time Date of admission: 07/09/24 14:20 Summary Hospital Course: Summary: Patient is a 78-year-old male with a past medical history of hypertension, diabetes mellitus type 2, [id number] on metformin 1000 p.o. daily, and history of CVS, status post bilateral BKA, carotid endarterectomy, and history of prostate cancer who initially presented to the ER with chief complain of decreased oral intake. Patient was admitted on 07/09/2024 direclty into the ICU for shock, likely secondary to cardiogenic and hypovolemia with acute encephalopathy. Patient code status was DRN/DNI. Patient transitioned to comfort measures on 07/10/2024 forgoing any further medical intervention. Patient family was present and at bedside with patient. Patient on 07/10/2024 at 2:10 PM within [facility]. ER Course: CT of the head was negative for acute hemorrhage mass effect or midline shift and there is encephalomalacia in the left middle cerebral artery distribution with ipsilateral ventricular dilatation from previous stroke EKG did not show any obvious ST segment elevations there is some nonspecific depressions in lead III and V4. Patient received 2 L boluses of NS in the ER without improvement to his MAP as as it actually dropped to the 50s over 30s. Due to the very critical state of the patient discussions about goals of care will help with the son who is the decision-maker and he wanted to try medical management at this time without CPR or intubation. Will admit the patient to the ICU for management of shock Hospital Course: Patient was admitted on 517 directly into the ICU in shock likely secondary to cardiogenic shock as bedside echo showed an ejection fraction less than 10%. Patient's initial troponin level of 8.889 and last repeat of 8.060. EKG on admission did not show ST elevation. Chest x-ray on 07/09/2025 5 showed bilateral pneumonia with chief complaint of cough, and elevated WBC count of 12.4 in addition, thus distributive shock likely contributed to patient's overall poor prognosis as well. Blood cultures obtained and patient started on antibiotics. Hypovolemic shock likely contributed to patient's overall poor prognosis as upper GI bleed as family reported several episodes of melena. Initial hemoglobin drop on 07/09/2024 showed 6.5 and hematocrit 20.9 with poor oral oral intake. Patient was transfused 2 units of PRBCs. Repeat hemoglobin hematocrit on 07/09/2024, hemoglobin 9.1 and hematocrit 29.7. Patient TANNER continue to worsen and likely developing acute kidney failure as BUN remain elevated at 68, creatinine 2.9, GFR of 21 with worsening hyperkalemia despite medical management. Acute liver failure present with morning labs on 07/10/2024 with AST's greater than 6000, ALT 3186 with acute encephalopathy present. Hyperbilirubinemia worsening increasing from 0.5-1.8. Metabolic acidosis with worsening lactic acid, last draw on 07/10/2024 at approximately 8:46 AM showing lactic acid of 11.7. CT head negative upon admission. Overall multiorgan failure. Decision was made collectively by family, including sons who are decision-makers, to transition patient to comfort measures only and forego any other further medical interventions. Given patient's poor prognosis and unstable vitals was worsening shock, multifactorial, acute renal failure, and acute liver failure, further medical intervention was stopped. Patient was pronounced on 07/10/2024 at [facility] at approximately 2:10 PM. See pronouncement for further details. #Comfort measures #Goals of care #Acute encephalopathy #Shock, multifactorial #Troponinemia #Acute respiratory failure #Upper GI bleed #Acute liver failure #Hyperbilirubinemia #Acute renal failure #Metabolic acidosis #Lactic acidosis #Hyperkalemia #History of diabetes mellitus type 2 #Sepsis secondary to pneumonia #Community-acquired pneumonia bilateral #Acute on chronic anemia - The patient's plan was discussed with attending Dr. Musa Ignacio MD PGY1 Internal Medicine Additional Data Confirmation of as documented by pronouncing clinician: no pulse, no respirations, no heart sounds and pupils fixed and dilated Family: at bedside Attending/PCP notified?: Yes Attending physician: Braeden Vigil MD Was code activated?: No Autopsy requested?: No soft work wrapper layer and examiner notified?: Yes Visit Providers Provider Primary care physician: Nathan Joe MD Consults: 07/09/24 13:59 Consult to Cardiology Stat Comment: Consulting Provider: Lee Sweet 07/09/24 18:15 Consult to Gastroenterology Routine Comment: melena Consulting Provider: Amaya Faustin Diagnosis PCOD Cause of : Cardiopulmonary arrest Contributing Factors (1) Comfort measures only status: (2) Cardiopulmonary arrest: (3) Shock: (4) Acute liver failure: (5) Acute kidney injury: Discharge Plan Problem List Was Problem List Reviewed/Reconciled?: Yes Plan Patient Disposition: Prescriptions/Referrals Prescriptions/Med Rec: No Action losartan 50 mg Tablet 50 mg PO QDAY simvastatin 10 mg Tablet 10 mg PO QPM acetazolamide 250 mg Tablet 125 mg PO QDAY Rx Instructions: HALF TAB PO QD timolol maleate 0.5 % Drops, Once Daily 1 drp OPHTHALMIC (EYE) BID Rx Instructions: RIGHT EYE. brimonidine 0.1 % Drops 1 drp OPHTHALMIC (EYE) TID Rx Instructions: RIGHT EYE. alogliptin 6.25 mg Tablet 6.25 mg PO QAM metformin 1,000 mg Tablet 1,000 mg PO QDAY Patient Comments: son states he is unable to take medication Rx Instructions: PT STATES HE TAKES THIS MED STILL BUT ON DR NOTE STATES TO DC. ascorbic acid (vitamin C) [Vitamin C] 250 mg Tablet 500 mg PO BID Qty: 10 0RF hydrocodone-acetaminophen [[place]] 10-325 mg tablet 1 tab PO Q6H MDD 3 PRN (Reason: pain) Qty: 20 0RF zinc sulfate 220 (50) mg Capsule 220 mg PO QDAY Qty: 10 0RF insulin glargine 100 unit/mL (3 mL) insulin pen 7 unit SC QDAY Qty: 15 0RF promethazine-DM 6.25-15 mg/5 mL syrup 5 ml PO Q6H PRN (Reason: cough) aspirin [Adult Low Dose Aspirin] 81 mg tablet,delayed release (DR/EC) 81 mg PO QDAY Referrals: Nathan Joe MD [Primary Care Provider] - Patient/Caregiver Discharge Instructions Print Language: Ukrainian
--- NOTE | 2024-07-10 14:10 | PD.DPN ---
Documentation for date of: 07/10/24 Pronouncement Note Date and Time of Date of : 07/10/24 Time of : 14:10 Contributing Factors (1) Cardiopulmonary arrest: (2) Comfort measures only status: Summary Additional details: ICU team was called to pronounce the of patient, Elpidio Mae. Upon examination, spontaneous movement were absent present. No response to verbal or tactile stimuli. No active heart or breath sounds were noted after 2 continuous minute of auscultation. Pupils were unresponsive to light, corneal reflexes absent, patient unresponsive to external stimuli. Patient was pronounced on 2:[facility] Attending Dr. Vigil was notified. The patient's family was present at bedside & consoled. Patient admitted on 07/10/2024 for shock on pressors likely secondary to cardiogenic and hypovolemic in acute renal failure, who went on to develop acute liver failure with worsening encephalopathy. Patient was DNR/DNI and decision was made by family to transition patient to comfort measures with no acute intervention and forgo any further medical intervention. Patient had been transitioned to comfort measures and all other medical intervention had been stopped. - The patient's plan was discussed with attending Dr. Musa Ignacio MD PGY1 Internal Medicine Additional Data Confirmation of : no pulse, no respirations, no heart sounds and pupils fixed and dilated Family: at bedside Attending/PCP notified?: Yes Attending physician: Braeden Vigil MD Was code activated?: No Autopsy requested?: No disability examiner notified?: Yes
[2024-07-10 15:24] LABS: Reflex Lactate? Y
--- NOTE | 2024-07-10 16:00 | PC.NURSE ---
[facility] downtime occurred on 07/10/2024 from 09:00 to 16:00.
--- NOTE | 2024-07-10 16:28 | PC.NURSE ---
phone call to [employer] to report less than 24 hrs from admission
--- NOTE | 2024-07-10 17:06 | PC.NURSE ---
[facility] on 07/10/2024 from [id number].
== END 2024-07-10 18:00 | disposition expired | DRG 871 ==
LOC: SERX 14:03 → SERHOLD 14:41 → S2SX 16:30 → S3SX 07-10 16:44
PROVIDERS: Student in an Organized Health Care Education/Training Program; Admitting Provider Internal Medicine; Emergency Provider Emergency Medicine; PCP Family Medicine; Visit Provider Internal Medicine
DX: A41.9 Sepsis, unspecified organism (principal); J18.9 Pneumonia, unspecified organism; J96.01 Acute respiratory failure with hypoxia; N17.0 Acute kidney failure with tubular necrosis; K72.00 Acute and subacute hepatic failure without coma; G93.40 Encephalopathy, unspecified; E87.20 Acidosis, unspecified; D62 Acute posthemorrhagic anemia; I10 Essential (primary) hypertension; R57.0 Cardiogenic shock; R57.1 Hypovolemic shock; H54.3 Unqualified visual loss, both eyes; E87.5 Hyperkalemia; E11.9 Type 2 diabetes mellitus without complications; Z89.511 Acquired absence of right leg below knee; Z85.46 Personal history of malignant neoplasm of prostate; Z89.512 Acquired absence of left leg below knee; E86.1 Hypovolemia; I46.8 Cardiac arrest due to other underlying condition; Z66 Do not resuscitate; Z51.5 Encounter for palliative care; Z79.84 Long term (current) use of oral hypoglycemic drugs; Z86.73 Personal history of transient ischemic attack (TIA), and cerebral infarction without residual deficits
CPT/HCPCS: 36415; 36600; 70450; 71045; 80053; 80061; 80069; 80074; 81001; 82010; 82803; 83036; 83540; 83550; 83605; 83735; 83880; 84100; 84132; 84145; 84484; 85014; 85018; 85025; 85046; 85610; 85730; 86850; 86900; 86901; 86923; 87040; 87081; 87086; 93005; 93971; 94644; J0613; J0696; J1815; J1938; J2470; J2543; J2598; J2919; J3490; J7030; J7040; P9016; A9270